=== PATIENT | female | born 1955 | race African-American/Black ===

== ENCOUNTER 2017-12-17 17:01 | Inpatient (IN) ==
[2017-12-17] MEDS ORDERED: Morphine Inj 4 MG/ML Vial IV.PUSH ONE (17:50)
--- NOTE | 2017-12-17 17:53 | ED ---
HPI General Chief complaint: Ldr Rn Problem Stated complaint: medical lab assistant Time Seen by Provider: 12/17/17 17:09 Source: patient, EMS and RN notes reviewed Mode of arrival: EMS Limitations: physical limitation History of Present Illness HPI narrative: The patient is a 62-year-old female who presents to emergency department as a transfer from [facility] for hydrocephalus with possible shunt malfunction. The patient apparently has a history of previous brain tumor with surgery resulting in hydrocephalus and a shunt was placed. The patient apparently lives with her daughter who noted over the last several days the patient has had decreased mental status and decreased appetite. They were seen at [facility] and had a CT the brain that apparently revealed dilated ventricles. The patient was transferred to [facility] after being accepted by neurosurgery. Upon arrival the patient will follow commands, is mostly nonverbal and unable to provide any answers. She will squeeze her right hand and move her right leg to commands, will not move the left side of her body. She has a disconjugate gaze but is able to mouth her name. Related Data Allergies Allergy/AdvReac Type Severity Reaction Status Date / Time heparin Allergy Anaphylaxis Verified 12/17/17 17:31 Sulfa (Sulfonamide Allergy Anaphylaxis Verified 12/17/17 17:31 Antibiotics) Review of Systems ROS: all other systems reviewed are negative [facility] Medical History Medical History CVA (cerebral vascular accident) (Acute) DVT (deep venous thrombosis) (Acute) Diabetes (Acute) H/O: hysterectomy (Acute) Hypothyroid (Acute) Obstructed TERADATA ARCHITECT shunt (Acute) Seizure (Acute) Surgical History Surgical History History of cholecystectomy (Acute) S/P TERADATA ARCHITECT shunt (Acute) Social History Social History Recent Travel in [facility] within the Last 8 Weeks: No Recent Out of Country Travel within the Last 8 Weeks: No Exam Narrative Exam Narrative: GENERAL: Eyes open, mostly nonverbal, follows commands. SKIN: Focused skin assessment warm/dry. HEAD: Atraumatic. Normocephalic. EYES: Left pupil is 2 mm, right pupil is 4 mm, patient has an tropia bilaterally. ENT: No nasal bleeding or discharge. Mucous membranes pink and moist. NECK: Trachea midline. No JVD. CARDIOVASCULAR: Regular rate and rhythm. No murmur appreciated. RESPIRATORY: No accessory muscle use. Clear to auscultation. Breath sounds equal bilaterally. GASTROINTESTINAL: Abdomen soft, obese, superficial abrasions under the large pannus. MUSCULOSKELETAL: Atrophy noted to the left upper extremity with contracture the left hand and atrophy of the left lower extremity with plantar flexion contracture. Patient will move her right upper extremity and right lower extremity. NEUROLOGICAL: Awake and alert. Patient is able to move her right upper extremity and right lower extremity. Patient does not move her left upper extremity or left lower extremity. She is able to follow commands with squeezing right hand and moving the right foot. She is able to mouth her name. Patient's eyes are inverted bilaterally, she will not follow fingers for extraocular movements. PSYCHIATRIC: Unable to assess. Course Initial Documented Vital Signs Pulse Rate 76 12/17/17 17:19 Respiratory Rate 18 12/17/17 17:19 Blood Pressure 168/89 H 12/17/17 17:19 Pulse Oximetry 100 12/17/17 17:19 Last Documented Vital Signs Pulse Rate 74 12/17/17 17:42 Respiratory Rate 16 12/17/17 17:42 Blood Pressure 173/70 H 12/17/17 17:42 Pulse Oximetry 100 12/17/17 17:42 Medical Decision Making MDM Narrative Medical decision making narrative: The patient was accepted by neurosurgery, the neurosurgeon did evaluate the patient in the emergency department and tapped the patient's shunt for CSF studies. The patient will be admitted to the medical service. The patient's labs were reviewed [facility] and the CT results and x-ray results were reviewed. The patient will be admitted to the on-call medical service. I discussed the patient with Dr. Tipton who agrees with admission. The patient did appear to be in mild discomfort, therefore, was administer morphine and Zofran. Labs [facility] revealed white count of 9.0, hemoglobin 12.5, hematocrit 38.9, platelet count 329 PT 27.6, INR 2.5, APTT 40.8 Sodium 145, potassium 5.2, chloride 106, CO2 23, anion gap 21, BUN 24, creatinine 1.16, glucose 102, calcium 9.2, total bili 0.2, AST is 20, ALT 15, alkaline phosphatase 98, total protein 8.1, albumin 4.4 CT of the brain reveals a shunt tube entering the right lateral ventricle. There has been development of hydrocephalus and transependymal flow of CSF since the prior study suggesting shunt failure. No acute hemorrhages evident. Chest x-ray there is no visible active process Medical Screen Exam Complete: Yes Emergency Medical Condition: Yes Differential Diagnosis Differential Diagnosis: Differential diagnosis includes normal pressure hydrocephalus, obstructive hydrocephalus, brain tumor, pseudotumor cerebri, hyponatremia, dehydration, encephalitis, meningitis. Discharge Plan Discharge Disposition Patient Disposition: 30 Still Patient Discharge Condition Condition: Stable Discharge Details Diagnosis: Hydrocephalus Physicians Team ED Provider: Beau Rinaldi Primary Care Provider: UNKNOWN, Attending Provider: Randee Tipton Discharge Interventions Interventions: Vital Signs Last Done: 12/17/17 17:42 Status ED Status: Admitted Patient
[2017-12-17] MEDS ORDERED: Acetaminophen 325 MG Tablet PO PRN (18:20)
[2017-12-17] MEDS ORDERED: Bisacodyl 10 MG Supp RECTAL PRN (18:20)
--- NOTE | 2017-12-17 18:40 | P.CONNS ---
History of Present Illness Service: Neurosurgery Consult date: 12/17/17 Primary Care Provider: UNKNOWN Chief Complaint: r/o shunt malfunction History of Present Illness: History obtained from daughter Maddie @ [phone] 62 yo F with PMH of DVT/PE on coumadin (INR 2.5), CVA, seizures, DM, hypothyroid , s/p right presigmoid craniotomy ("for brain tumor", 7 years ago, [facility]), also s/p right VPS (7 years ago, "tubing replaced 1 year ago) presents to OSH for 2-3 days of decreased appetite and "talking." Daughter denies any complaints of headaches, nausea, vomiting, or neurological changes aside from "seems less alert." Review of Systems All other systems reviewed negative except as stated in [facility]PI [facility] - History History Provided By: Fork Operator / EMT - Medical History Medical History: Medical History (Last Updated 12/17/17 @ 17:30 by Janet Montana) CVA (cerebral vascular accident) DVT (deep venous thrombosis) Diabetes H/O: hysterectomy Hypothyroid Obstructed DIRECTOR OF RELIGIOUS LIFE shunt Seizure - Surgical History Surgical History: Surgical History (Last Updated 12/17/17 @ 17:30 by Janet Montana) History of cholecystectomy S/P DIRECTOR OF RELIGIOUS LIFE shunt - Travel History Recent Travel in the [place] Within the Last 8 Weeks: No Recent Travel Out of the Country Within the Last 8 Weeks: No Medications and Allergies Active Medications: Active Medications Acetaminophen (Tylenol) 650 mg PO Q4H PRN PRN Reason: Temp > 100.4 Al Hydroxide/Mg Hydroxide (Milk Of Magnesia Liq) 30 ml PO Q12H PRN PRN Reason: Mild Constipation Bisacodyl (Dulcolax Supp) 10 mg RECTAL DAILY PRN PRN Reason: SEVERE CONSITIPATION Lactulose (Lactulose Liq) 30 ml PO DAILY PRN PRN Reason: SEVERE CONSITIPATION Ondansetron HCl (Zofran Inj) 4 mg IV.PUSH Q6H PRN PRN Reason: NAUSEA OR VOMITING Senna/Docusate Sodium (Nevaeh-Colace) 1 tab PO BID NICKI Sennosides (Senokot) 17.2 mg PO Q12H PRN PRN Reason: Moderate Constipation Allergies Allergy/AdvReac Type Severity Reaction Status Date / Time heparin Allergy Anaphylaxis Verified 12/17/17 17:31 Sulfa (Sulfonamide Allergy Anaphylaxis Verified 12/17/17 17:31 Antibiotics) Exam Vital signs: Vital Signs 12/17/17 17:19 12/17/17 17:42 Pulse Rate 76 74 Respiratory Rate 18 16 Blood Pressure 168/89 H 173/70 H Pulse Oximetry 100 100 Intake & Output 12/16/17 12/17/17 12/17/17 18:59 06:59 18:59 Weight 115 kg Narrative: E3 dysconjugate gaze with restricted motion (daughter reports baseline oriented to self only Follows simple commands on the right 5/5 strength on the right upper and lower extremities does not follow commands on the left trace movement to stimulation in the left Assessment and Plan - Plan OSH Imaging 12/17: craniectomy defect in the right presigmoid area. Right frontal VPS entering the right lateral ventricle and terminating into the 3rd ventricle. Ventriculomegaly noted. right frontal hypodensity/encephalomalacia 62 yo with PMH of CVA, DVT/PE on coumadin, craniotomy s/p VPS with possible shunt malfunction -VPS taped at bedside: without spontaneous flow till aspirated. opening pressure 12, drained off 15cc, closing pressure 2 cc. -CSF sent for cytology and culture to r/o infection -Discussed with transfer center, will have rough and trueing machine operator obtain previous imaging for comparison -Will obtain shunt series to evaluate for any disconnect -recommend reversal of coumadin for possible surgical intervention -NPO at midnight for possible shunt revision pending results of above
[2017-12-17] MEDS ORDERED: Dextrose 50% in Water 50 ML Vial IV.PUSH PRN (19:05)
[2017-12-17] MEDS ORDERED: hydrALAZINE HCl Inj 20 MG/ML Vial IV.PUSH PRN (19:06)
--- NOTE | 2017-12-17 19:09 | P.HPIM ---
History of Present Illness Primary Care Physician: UNKNOWN Chief Complaint: r/o shunt malfunction History of Present Illness: 62-year-old -[place] female with history of brain tumor status post resection x 2 and shunt placement x 2 for hydrocephalus, prior CVA with left- sided hemiparesis, prior DVT/PE anticoagulated on Coumadin, seizure disorder, and hypothyroidism transferred from [facility] for evaluation of possible shunt malfunction. The patient is a poor historian and the history is primarily obtained by the ED physicians evaluation as well as the patient's daughter who was contacted via phone. Reportedly the patient has had worsening altered mental status for the past several days and decreased appetite. Her daughter states that although she is not completely oriented at baseline she is able to hold a conversation. She states she knows her name, birthday, social security number, etc. but is typically not oriented to time. Today it got to the point where the patient was not even able to communicate with her daughter so she brought her into the ED at [place] since they live in [place]. A CT scan of the brain showed dilated ventricles concerning for possible shunt malfunction. After acceptance by neurosurgery, the patient was transferred to [place]. The patient denies headaches, nausea, vomiting, or new neuro deficits. The daughter states she hasn't had a fever or signs of infection. She hasn't been seen by a neurologist in approximately one year as her daughter has had difficulty finding one that will accept her. The patient's daugther states her PCP has taken her off multiple medications and now she is only taking Lisinopril, Keppra, and Coumadin. She states she had diabetes when she was chronically on steroids for the tumor but since being off she has been off of diabetic medications. - Diagnosis (1) Altered mental status (2) Hydrocephalus Inpatient Certification: I certify that the inpatient services were ordered in accordance with Medicare regulations governing the order. This includes certification that hospital inpatient services are reasonable and necessary and in the case of services not specified as inpatient-only under 42 CFR 419.22(n), that they are appropriately provided as inpatient services in accordance to with the 2-midnight benchmark under 43 CFR 412.3(e) Estimated Total Length of Stay (Days): 3 Plans for Post Hospital Care: Not yet determined Review of Systems All other systems reviewed negative except as stated in HPI [facility] - History History Provided By: Personal Care Service Provider / EMT - Medical History Medical History: Medical History (Last Reviewed 12/17/17 @ 21:01 by Randee Tipton MD) CVA (cerebral vascular accident) DVT (deep venous thrombosis) Diabetes Hypothyroid Obstructed INVESTMENT ACCOUNTING CLERK shunt Seizure - Surgical History Surgical History: Surgical History (Last Updated 12/17/17 @ 21:01 by Randee Tipton MD) H/O brain surgery H/O: hysterectomy History of cholecystectomy S/P INVESTMENT ACCOUNTING CLERK shunt - Family History Family History: Family History (Last Updated 12/17/17 @ 21:02 by Randee Tipton MD) Other Family history non-contributory - Social History I have reviewed the patient's Social History: Yes - Tobacco History Tobacco Use In Past 30 Days: No Smoking Status: Never smoker - Alcohol History How Often Do You Have a Drink Containing Alcohol: Never - Travel History Recent Travel in the [place] Within the Last 8 Weeks: No Recent Travel Out of the Country Within the Last 8 Weeks: No Medications and Allergies Active Medications: Active Medications Acetaminophen (Tylenol) 650 mg PO Q4H PRN PRN Reason: Temp > 100.4 Al Hydroxide/Mg Hydroxide (Milk Of Magnesia Liq) 30 ml PO Q12H PRN PRN Reason: Mild Constipation Bisacodyl (Dulcolax Supp) 10 mg RECTAL DAILY PRN PRN Reason: SEVERE CONSITIPATION Lactulose (Lactulose Liq) 30 ml PO DAILY PRN PRN Reason: SEVERE CONSITIPATION Ondansetron HCl (Zofran Inj) 4 mg IV.PUSH Q6H PRN PRN Reason: NAUSEA OR VOMITING Senna/Docusate Sodium (Nevaeh-Colace) 1 tab PO BID NICKI Sennosides (Senokot) 17.2 mg PO Q12H PRN PRN Reason: Moderate Constipation Allergies Allergy/AdvReac Type Severity Reaction Status Date / Time heparin Allergy Anaphylaxis Verified 12/17/17 17:31 Sulfa (Sulfonamide Allergy Anaphylaxis Verified 12/17/17 17:31 Antibiotics) Home Medications Medication Instructions Recorded Confirmed Type cholecalciferol (vitamin D3) 50,000 unit PO QWEEK 12/17/17 12/17/17 History [Decara] escitalopram oxalate 10 mg PO DAILY 12/17/17 12/17/17 History insulin aspart U-100 5 unit SUB-Q DAILY 12/17/17 12/17/17 History insulin detemir U-100 [Levemir 12 unit SUB-Q HS 12/17/17 12/17/17 History U-100 Insulin] levetiracetam [Keppra] 10 mg/kg PO Q12H 12/17/17 12/17/17 History levothyroxine 50 mcg PO DAILY 12/17/17 12/17/17 History trazodone 50 mg PO HS 12/17/17 12/17/17 History warfarin 5 mg PO DAILY 12/17/17 12/17/17 History Exam Vital signs: Vital Signs 12/17/17 17:19 12/17/17 17:42 Pulse Rate 76 74 Respiratory Rate 18 16 Blood Pressure 168/89 H 173/70 H Pulse Oximetry 100 100 Intake & Output 12/17/17 12/17/17 12/18/17 06:59 18:59 06:59 Weight 115 kg Narrative: GENERAL: Obese -[place] female resting in bed in [facility]. SKIN: Warm and dry. HEENT: Pupils equal and round. Strabismus. MMM. HEART: RRR no m/r/g. LUNGS: CTAB without wheezes or crackles. ABDOMEN: +BS, soft, NT, ND. EXTREMITIES: No LE edema. NEURO: Awake and alert. LLE and LUE flaccid. Results - Labs CBC & Chem 7: 12/17/17 20:28 Caprini VTE Risk Assessment Caprini VTE Risk Assessment: Moderate/High Risk (score >= 2) Caprini Risk Assessment Model: Point Value = 1 Point Value = 2 Point Value = 3 Point Value = 5 Age 41-60 Minor surgery BMI > 25 kg/m2 Swollen legs Varicose veins or History of unexplained or recurrent spontaneous Oral contraceptives or hormone replacement Sepsis (< 1 month) Serious lung disease, including pneumonia (< 1 month) Abnormal pulmonary function Acute myocardial infarction Congestive heart failure (< 1 month) History of inflammatory bowel disease Medical patient at bed rest Age 61-74 Arthroscopic surgery Major open surgery (> 45 min) Laparoscopic surgery (> 45 min) Malignancy Confined to bed (> 72 hours) Immobilizing plaster cast Central venous access Age >= 75 History of VTE Family history of VTE Factor V Leiden Prothrombin [id number] Lupus anticoagulant Anticardiolipin antibodies Elevated serum homocysteine Heparin-induced thrombocytopenia Other congenital or acquired thrombophilia Stroke (< 1 month) Elective arthroplasty Hip, pelvis, or leg fracture Acute spinal cord injury (< 1 month) Prophylaxis Regimen: Total Risk Factor Score Risk Level Prophylaxis Regimen 0-1 Low Early ambulation 2 Moderate Order ONE of the following: *Sequential Compression Device (SCD) *Heparin 5000 units SQ BID 3-4 Higher Order ONE of the following medications: *Heparin 5000 units SQ TID *Enoxaparin/Lovenox 40 mg SQ daily (WT < 150 kg, CrCl > 30 mL/min) *Enoxaparin/Lovenox 30 mg SQ daily (WT < 150 kg, CrCl > 10-29 mL/min) *Enoxaparin/Lovenox 30 mg SQ BID (WT < 150 kg, CrCl > 30 mL/min) AND/OR *Sequential Compression Device (SCD) 5 or more Highest Order ONE of the following medications: *Heparin 5000 units SQ TID (Preferred with Epidurals) *Enoxaparin/Lovenox 40 mg SQ daily (WT < 150 kg, CrCl > 30 mL/min) *Enoxaparin/Lovenox 30 mg SQ daily (WT < 150 kg, CrCl > 10-29 mL/min) *Enoxaparin/Lovenox 30 mg SQ BID (WT < 150 kg, CrCl > 30 mL/min) AND *Sequential Compression Device (SCD) Assessment and Plan - Assessment (1) Altered mental status Code(s): R41.82 - Altered mental status, unspecified Status: Acute (2) Hydrocephalus Code(s): G91.9 - Hydrocephalus, unspecified Status: Acute - Plan 62-year-old -[place] female with history of brain tumor status post resection and INVESTMENT ACCOUNTING CLERK shunt placement, prior CVA, prior DVT/PE anticoagulated on Coumadin, and seizure disorder transferred from [facility] for evaluation of shunt malfunction after the patient presented with AMS. Labs from the outlying facility revealed white count of 9.0, hemoglobin 12.5, hematocrit 38.9, platelet count 329, PT 27.6, INR 2.5, APTT 40.8, Sodium 145, potassium 5.2 , chloride 106, CO2 23, anion gap 21, BUN 24, creatinine 1.16, glucose 102, calcium 9.2, total bili 0.2, AST 20, ALT 15, alkaline phosphatase 98, total protein 8.1, and albumin 4.4. CT of the brain revealed a shunt tube entering the right lateral ventricle with development of hydrocephalus and transependymal flow of CSF since the prior study suggesting shunt failure. 1. Altered mental status - Afebrile, VSS - Outside imaging and labs as above - Neurosurgery consulted s/p VPS tap at the bedside with CSF fluid sent for evaluation (cytology and culture) - Opening pressure 12, 15 cc CSF drained with closing pressure 2 - Check U/A for infection - Electrolytes WNL - Check shunt series - Check TSH - D/W neurosurgery, will give 1 unit FFP to reverse Coumadin 2. Hydrocephalus - INVESTMENT ACCOUNTING CLERK shunt in place - See plans above 3. ?Hypothyroidism - Daughter does not endorse Synthroid on med list - Check TSH 4. H/o recurrent DVT/PE - Anticoagulated on Coumadin with INR 2.5 - Doppler U/S negative for DVT - Holding Coumadin for possible neurosurgical intervention - 1 unit FFP ordered - Check INR tomorrow 5. Hyperkalemia - Potassium 5.2 - Recheck BMP 6. Seizures - Continue Keppra NPO after midnight DVT prophylaxis: INR 2.5, SCDs Code Status: FULL (d/w daughter) Discussed Condition With: Dr. Rinaldi, Dr. Burk, and patient's daughter
--- NOTE | 2017-12-17 19:28 | XR ---
EXAM DATE: 12/17/2017 7:11 PM EDT AGE/SEX: 62 years / Female INDICATIONS: Shunt patency. CLINICAL DATA: This is the patient's initial encounter. Patient reports that signs and symptoms have been present for 1 day and indicates a pain score of Nonresponsive. MEDICAL/SURGICAL HISTORY: . CVA. Diabetes. DVT. Seizures. Hysterectomy. 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 BI LEAD s alex. COMPARISON: No prior exams available for comparison. FINDINGS: Examination includes two-view skull, two-view C-spine, and frontal views of the chest and abdomen. Ventriculostomy shunt tip is projected in the left lower abdomen . The alignment of the tubing wit h the reservoir is maintained without evidence of separation. The shunt tubing has a normal course through the neck and chest without discontinuity or kink. The shunt tubing is coiled in the abdomen without displacement of the bowel about the distal tip. CONCLUSION: The shunt catheter tubing appears intact. Electronically signed by: Dov Polk MD 12/17/2017 7:27 PM EDT
--- NOTE | 2017-12-17 20:44 | US ---
EXAM DATE: 12/17/2017 8:39 PM EDT AGE/SEX: 62 years / Female INDICATIONS: Thrombosis. CLINICAL DATA: This is the patient's initial encounter. Patient reports that signs and symptoms have been present for 1 day and indicates a pain score of 0/10. MEDICAL/SURGICAL HISTORY: . CVA. Diabetic. DVT. Hypothyroid. Obstructed TESTING AND REGULATING CHIEF shunt. Seizure. . Hysterectomy. S/P TESTING AND REGULATING CHIEF shunt. COMPARISON: No prior exams available for comparison. TECHNIQUE: Venous ultrasound of both lower extremities was performed from the inguinal ligament to t he proximal calf. Real-time, color Doppler and spectral tracing, compression and augmentation techni ques were used. FINDINGS: The study was mildly suboptimal due to the patient's body habitus. Right Leg: Normal compression of the deep venous system from the inguinal region to the proximal karin f. No echogenic clot is seen. Normal response of the venous system to augmentation and respiration. Left Leg: Normal compression of the deep venous system from the inguinal region to the proximal calf . No echogenic clot is seen. Normal response of the venous system to augmentation and respiration. Other: None. CONCLUSION: 1. Negative study with no evidence of deep venous thrombosis. Electronically signed by: Dov Polk MD 12/17/2017 8:43 PM EDT
[2017-12-17 20:48] LABS: Lymphocytes, CSF 60 %; Monocytes,CSF 40 %
[2017-12-17 20:49] LABS: Neutrophils,CSF 0 %; RBC on Tube 1 14 /mm3
[2017-12-17] MEDS ORDERED: Insulin NovoLOG Aspart Correctional Sugar Inj SQ SCH (21:00)
[2017-12-17 21:22] LABS: Calcium 8.9 mg/dL (8.5-10.1); Carbon Dioxide 26.3 meq/L (21.0-32.0)
[2017-12-17 21:31] LABS: Thyroid Stimulating Hormone 0.797 uIU/mL (0.358-3.740)
[2017-12-17] MEDS: Senna/Docusate Sodium 8.6/50 MG Tablet PO SCH (21:32)
--- NOTE | 2017-12-17 22:14 | XR ---
EXAM DATE: 12/17/2017 10:09 PM EDT AGE/SEX: 62 years / Female INDICATIONS: Evaluate for shunt valve type. CLINICAL DATA: This is the patient's initial encounter. Patient reports that signs and symptoms have been present for 1 day and indicates a pain score of 0/10. MEDICAL/SURGICAL HISTORY: . CVA. Diabetes. DVT. Seizures. . Hysterectomy. 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 V P shunt. COMPARISON: [facility], SHUNT SERIES, 12/17/2017. . FINDINGS: Multiple attempts were made to position the patient to that the shunt valve could be visualized tange ntially. This could not be performed even with fluoroscopy. The shunt valve is visualized and cannot be read CONCLUSION: Suboptimal visualization. Electronically signed by: Dov Polk MD 12/17/2017 10:13 PM EDT
--- NOTE | 2017-12-17 23:13 | P.EN ---
Received imaging from OSH. Ct head from demonstrates ventriculomegaly ( failure scan) which daughter reports is "around the time of the last revision" which is similar in appearance to 12/17 CT head. Further, CT head from demonstrates normal ventricular size. All three scans also demonstrate a Strata NSC programmable valve with stable setting to 1.5 (roughly 80 mm H20), therefore simple adjustment would not suffice. Xray shunt series does not demonstrate any discontinuity of tubing. Since shunt tap pressure was roughly 120-130, likely valve issue. Currently patient bright, AOxself, and following commands on the right (stable). Since patients exam stable, has been temporized by shunt tap, and is high risk 2/2 elevated coumadin, will plan for shunt exploration/revision in am. -Transfuse FFP with goal normal INR -OR in am for shunt revision
[2017-12-17] MEDS ORDERED: levETIRAcetam 250 MG Tablet PO STA (23:46)
[2017-12-18] MEDS: Levothyroxine 50 MCG Tablet PO SCH (05:47)
[2017-12-18] MEDS ORDERED: Gelatin Size 100 Topical Foam ONE (07:08)
[2017-12-18] MEDS ORDERED: Lidocaine 1%/Epinephrine 1:100,000 Inj 30 ML Vial ONE (07:08)
[2017-12-18] MEDS ORDERED: Thrombin Topical Soln 5,000 UNIT Vial TOPICAL ONE (07:09)
[2017-12-18 07:12] LABS: Baso # (Auto) 0.1 th/mm3 (0.0-0.2); Baso % (Auto) 0.8 % (0.0-2.0); Eos # (Auto) 0.3 th/mm3 (0.0-0.4); Eos % (Auto) 2.7 % (0.0-4.0); Hematocrit 32.7 % (35.0-46.0); Hemoglobin 10.6 gm/dL (11.6-15.3); Lymph # (Auto) 3.2 th/mm3 (1.0-4.8); Lymph % (Auto) 33.6 % (9.0-44.0); Mean Corpuscular HGB Conc 32.3 % (32.0-36.0); Mean Corpuscular Hemoglobin 26.4 pg (27.0-34.0); Mean Corpuscular Volume 81.8 fL (80.0-100.0); Mean Platelet Volume 7.6 fL (7.0-11.0); Mono # (Auto) 0.5 th/mm3 (0.0-0.9); Mono % (Auto) 5.2 % (0.0-8.0); Neut # (Auto) 5.4 th/mm3 (1.8-7.7); Neut % (Auto) 57.7 % (16.0-70.0); Platelet Count 327 th/mm3 (150-450); Red Cell Distribution Width 16.7 % (11.6-17.2); White Blood Count 9.4 th/mm3 (4.0-11.0)
[2017-12-18 07:16] LABS: INR 1.8 Ratio; Prothrombin Time 18.7 sec (9.8-11.6)
[2017-12-18 07:38] LABS: Calcium 8.9 mg/dL (8.5-10.1); Carbon Dioxide 29.9 meq/L (21.0-32.0); Potassium 3.8 meq/L (3.5-5.1)
--- NOTE | 2017-12-18 08:02 | P.PNNS ---
Subjective Interval history: patient without any issues. neuro stable through night per nursing. received 1 unit FFP last night Physical Exam Vital signs: Vital Signs 12/17/17 17:19 12/17/17 17:42 12/17/17 19:10 Temperature Pulse Rate 76 74 78 Respiratory Rate 18 16 16 Blood Pressure 168/89 H 173/70 H 153/97 H Pulse Oximetry 100 100 100 12/17/17 20:00 12/18/17 00:00 12/18/17 00:16 Temperature 97.9 F 97.9 F 98 F Pulse Rate 80 90 85 Respiratory Rate 18 Blood Pressure 166/71 H 152/81 H 141/66 H Pulse Oximetry 100 98 100 12/18/17 00:35 12/18/17 02:10 12/18/17 02:58 Temperature 99.3 F 99.6 F 98.0 F Pulse Rate 84 86 83 Respiratory Rate 18 Blood Pressure 138/89 125/82 131/60 Pulse Oximetry 100 97 100 Intake & Output 12/17/17 12/18/17 12/18/17 18:59 06:59 18:59 Intake Total 351 / 351 Balance 351 / 351 Weight 115 kg Intake: Intake (Blood Product) Amt 351 / 351 Plasma Thawed 5 Day Cp2d Unit 351 / 351 [id number] Other: # Incontinent Voids 2 Narrative: E4 AOx self only Follows commands on the right 5/5 strength in the right upper and lower trace movement in the left upper and lower Assessment and Plan - Plan Imagin: failure scan, significant ventriculomegaly. Strata NSC @1.5 : baseline scan, normal ventricular size with strata NSC @1.5 12/17/17: craniectomy defect in the right presigmoid area. Right frontal VPS entering the right lateral ventricle and terminating into the 3rd ventricle. Ventriculomegaly noted. right frontal hypodensity/encephalomalacia. Strata NSC @1.5 A/P: 62 yo with PMH of CVA, DVT/PE on coumadin, craniotomy s/p VPS with shunt malfunction -neuro stable -CT head with imaging consistent with shunt failure, shunt series with intact tubing -VPS taped at bedside: without spontaneous flow till aspirated. opening pressure 12, drained off 15cc, closing pressure 2 cc -CSF cytology does not appear infected, pending final culture -received 1 unit FFP, repeat INR 1.8. Will repeat another unit of FFP in order to correct -OR this am for shunt revision once INR corrected, continue NPO
--- NOTE | 2017-12-18 09:05 | P.PNIM ---
Subjective Interval history: in no acute distress. looks comfortable. d/w the RN and no acute issues over night. Physical Exam Vital signs: Vital Signs 12/17/17 17:19 12/17/17 17:42 12/17/17 19:10 Temperature Pulse Rate 76 74 78 Respiratory Rate 18 16 16 Blood Pressure 168/89 H 173/70 H 153/97 H Pulse Oximetry 100 100 100 12/17/17 20:00 12/18/17 00:00 12/18/17 00:16 Temperature 97.9 F 97.9 F 98 F Pulse Rate 80 90 85 Respiratory Rate 18 18 18 Blood Pressure 166/71 H 152/81 H 141/66 H Pulse Oximetry 100 98 100 12/18/17 00:35 12/18/17 02:10 12/18/17 02:58 Temperature 99.3 F 99.6 F 98.0 F Pulse Rate 84 86 83 Respiratory Rate 18 18 18 Blood Pressure 138/89 125/82 131/60 Pulse Oximetry 100 97 100 Intake & Output 12/17/17 12/18/17 12/18/17 18:59 06:59 18:59 Intake Total 351 / 351 Balance 351 / 351 Weight 115 kg Intake: Intake (Blood Product) Amt 351 / 351 Plasma Thawed 5 Day Cp2d Unit 351 / 351 [id number] Other: # Incontinent Voids 2 - Constitutional no acute distress - Routine Respiratory Exam Present: CTA bilaterally - Routine Cardiovascular Exam Present: RRR - Routine Abdominal Exam Present: soft - Routine Extremities Exam Comments: no pedal edema. - Routine Neurological Exam awake. Results - Labs CBC & Chem 7: 12/18/17 06:50 12/18/17 06:50 Laboratory Results - last 24 hr 12/17/17 12/17/17 12/17/17 17:45 17:45 17:45 WBC RBC Hgb Hct MCV MCH MCHC RDW Plt Count MPV Neut % (Auto) Lymph % (Auto) Luce % (Auto) Eos % (Auto) Baso % (Auto) Neut # (Auto) Lymph # (Auto) Luce # (Auto) Eos # (Auto) Baso # (Auto) WBC Differential Differential Comment PT INR Sodium Potassium Chloride Carbon Dioxide Anion Gap BUN Creatinine Estimated GFR Random Glucose Calcium TSH CSF Volume (1) 3.0 CSF Supernat Color (1) Clear CSF WBC (1) 6 CSF RBC (1) 14 H CSF Neutrophils % 0 CSF Lymphocytes % 60 CSF Monocytes % 40 CSF Glucose 67 CSF Total Protein 16.1 Blood Type Blood Bank Comment 12/17/17 12/17/17 12/18/17 20:28 20:34 06:50 WBC 9.4 RBC 4.00 Hgb 10.6 L Hct 32.7 L MCV 81.8 MCH 26.4 L MCHC 32.3 RDW 16.7 Plt Count 327 MPV 7.6 Neut % (Auto) 57.7 Lymph % (Auto) 33.6 Luce % (Auto) 5.2 Eos % (Auto) 2.7 Baso % (Auto) 0.8 Neut # (Auto) 5.4 Lymph # (Auto) 3.2 Luce # (Auto) 0.5 Eos # (Auto) 0.3 Baso # (Auto) 0.1 WBC Differential . Differential Comment Auto diff final PT INR Sodium 145 Potassium 4.0 Chloride 111 H Carbon Dioxide 26.3 Anion Gap 8 BUN 23 H Creatinine 1.33 H Estimated GFR 41 L Random Glucose 91 Calcium 8.9 TSH 0.797 CSF Volume (1) CSF Supernat Color (1) CSF WBC (1) CSF RBC (1) CSF Neutrophils % CSF Lymphocytes % CSF Monocytes % CSF Glucose CSF Total Protein Blood Type AB Positive Blood Bank Comment 12/18/17 12/18/17 12/18/17 06:50 06:50 08:02 WBC RBC Hgb Hct MCV MCH MCHC RDW Plt Count MPV Neut % (Auto) Lymph % (Auto) Luce % (Auto) Eos % (Auto) Baso % (Auto) Neut # (Auto) Lymph # (Auto) Luce # (Auto) Eos # (Auto) Baso # (Auto) WBC Differential Differential Comment PT 18.7 H INR 1.8 Sodium 146 H Potassium 3.8 Chloride 111 H Carbon Dioxide 29.9 Anion Gap 5 BUN 26 H Creatinine 1.45 H Estimated GFR 37 L Random Glucose 85 Calcium 8.9 TSH CSF Volume (1) CSF Supernat Color (1) CSF WBC (1) CSF RBC (1) CSF Neutrophils % CSF Lymphocytes % CSF Monocytes % CSF Glucose CSF Total Protein Blood Type Blood Bank Comment Microbiology 12/17/17 17:45 Shunt Fluid Gram Stain - Final 12/17/17 17:45 Cerebral Spinal Fluid - Shunt Fluid Gram Stain - Final - Imaging Impressions Shunt Study 12/17/17 17:45 CONCLUSION: The shunt catheter tubing appears intact. Venous Doppler Study 12/17/17 17:48 CONCLUSION: 1. Negative study with no evidence of deep venous thrombosis. Skull X-Ray 12/17/17 20:28 CONCLUSION: Suboptimal visualization. Assessment and Plan - Assessment (1) Altered mental status Code(s): R41.82 - Altered mental status, unspecified Status: Acute (2) Hydrocephalus Code(s): G91.9 - Hydrocephalus, unspecified Status: Acute - Plan 1. Altered mental status - Afebrile, VSS -- Neurosurgery consulted s/p VPS tap at the bedside with CSF fluid sent for evaluation (cytology and culture) - Opening pressure 12, 15 cc CSF drained with closing pressure 2 - D/W neurosurgery, will give another unit FFP to reverse Coumadin -for OR today for shunt revision 2. Hydrocephalus - TREE INSPECTOR shunt in place - See plans above 3. ?Hypothyroidism - Daughter does not endorse Synthroid on med list - TSH WNL 4. H/o recurrent DVT/PE - Anticoagulated on Coumadin - Doppler U/S negative for DVT - Holding Coumadin for possible neurosurgical intervention - 1 unit FFP ordered 5. Seizures - Continue Keppra DVT prophylaxis: SCD's Discharge Planning: for OR today-per neurosurgery.
[2017-12-18 11:01] LABS: Hemoglobin A1c 6.1 % (4.3-6.0)
[2017-12-18] MEDS: Escitalopram 10 MG Tablet PO SCH (11:40)
[2017-12-18] MEDS: Senna/Docusate Sodium 8.6/50 MG Tablet PO SCH ×2 (11:41→21:01)
[2017-12-18] MEDS: levETIRAcetam 250 MG Tablet PO SCH ×2 (11:49→23:06)
[2017-12-18 11:51] LABS: INR 1.8 Ratio
[2017-12-18 12:49] LABS: INR 1.7 Ratio; Prothrombin Time 17.4 sec (9.8-11.6)
[2017-12-18] MEDS ORDERED: Sodium Chlor 0.9% Inj 250 ML IV.SIG SCH (13:00)
--- NOTE | 2017-12-18 13:01 | P.EN ---
After 2 units of FFP, patients INR 1.7. Will transfuse another unit stat, with repeat INR to be drawn 30 minutes after infusion
[2017-12-18 15:30] LABS: INR 1.6 Ratio; Prothrombin Time 16.2 sec (9.8-11.6)
[2017-12-18] MEDS ORDERED: ceFAZolin 2 GM Premix Inj 2 GM/50 ML PIGGYBACK IV.SIG ONE (16:09)
[2017-12-18 16:36] LABS: Bacteria,Urine Moderate /hpf; Bilirubin,Urine Negative (Negative); Clarity,Urine Hazy (Clear); Color,Urine Yellow (Yellw/Straw); Glucose,Urine (UA) Negative (Negative); Leukocyte Esterase,Urine Trace (Negative); Mucus,Urine Few /lpf (Occasional); Nitrite,Urine Negative (Negative); Specific Gravity,Urine 1.026 (1.002-1.035); Squamous Epithelial Cell,Urine 1 /hpf (0-5)
[2017-12-18] MEDS ORDERED: Neostigmine Inj 5 MG/5 ML Syringe IV.PUSH ONE (16:43)
[2017-12-18] MEDS ORDERED: Lidocaine PF 1% Inj 5 ML Syringe INFILTRATN ONE (16:43)
[2017-12-18] MEDS ORDERED: Phenylephrine/NS 1000 MCG/10ML Syringe IV.PUSH ONE (16:43)
[2017-12-18] MEDS ORDERED: Glycopyrrolate Inj 1 MG/5 ML Syringe IV.PUSH ONE (16:43)
--- NOTE | 2017-12-18 18:26 | P.BOP ---
- Postoperative Diagnosis (1) Hydrocephalus Date of procedure: 12/18/17 Procedure: Exploration of right ventriculoperitoneal shunt. Placement of codman hakim programmable valve (set to 80) Anesthesia: GETA Surgeon: Beto Burk MD Estimated blood loss (mL): 25 IV fluids (mL): 600 Urine output (mL): 400 Pathology: none sent Condition: stable Disposition: floor
[2017-12-18] MEDS ORDERED: *morphine SULFATE 10 MG/ML PERIprocedure ONLY ONE ×2 (18:45→18:59)
[2017-12-18] MEDS ORDERED: fentaNYL Citrate Inj 100 MCG/2 ML Ampul ONE (18:55)
--- NOTE | 2017-12-18 20:01 | CT ---
EXAM DATE: 12/18/2017 7:52 PM EDT AGE/SEX: 62 years / Female INDICATIONS: Post op shunt revision. CLINICAL DATA: This is the patient's initial encounter. Patient reports that signs and symptoms have been present for 1 day and indicates a pain score of 0/10. MEDICAL/SURGICAL HISTORY: Cardiovascular disease. Diabetes mellitus type II. Seizures. Craniotomy . 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 Hysterectomy. 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 . TECHNIQUE: CT of the head without contrast. Using automated exposure control and adjustment of the mA and/or kV according to patient size, radiation dose was kept as low as reasonably achievable to ob tain optimal diagnostic quality images. DICOM format image data is available electronically for revi ew and comparison. FINDINGS: There is motion and streak artifact limiting visualization. There is a shunt catheter in place via a right frontal approach with the tip in the right lateral ventricle. There is a small gas collection i n the anterior horn of the right lateral ventricle. Edema is noted in the white matter of the right f rontal and parietal lobe. Calcifications noted in these cerebral falx anteriorly. The lateral and thi rd ventricles appear prominent. There is an ill-defined masslike structure in the right suprasellar r egion. This measures up to approximately 2.4 cm in diameter. The posterior fossa is is otherwise unre markable. The patient is status post right temporal craniotomy. There is no acute hemorrhage. CONCLUSION: 1. Right-sided shunt catheter in place with the tip in the right lateral ventricle. The lateral and third ventricles are prominent. 2. Ill-defined masslike structure in the right suprasellar region. This area is not well-visualized due to streak and motion artifact. 3. The patient is status post right temporal craniotomy. 4. Edema is noted in the white matter of the right frontal and parietal lobes. There is no acute hem orrhage. . Electronically signed by: Dov Polk MD 12/18/2017 8:00 PM EDT
--- NOTE | 2017-12-18 20:14 | P.OP ---
- Preoperative Diagnosis (1) Hydrocephalus - Postoperative Diagnosis (1) Hydrocephalus Date of procedure: 12/18/17 Procedure: Right ventriculoperitoneal shunt revision Implants: Codman Hakim programmable valve (Set to 80) Anesthesia: GETA Surgeon: Beto Burk MD Operation and Findings: Indication for procedure: 62 yo F s/p craniectomy for tumor resection and VPS many years prior who presented to OS with confusion. CT head demonstrated hydrocephalus in comparison to previous imaging. The valve was tapped and CSF aspirated in order to temporize the patient till her INR was successfully reversed with FFP. The risks, indications, and alternatives were discussed with the patients POA, and the family elected to undergo shunt revision. Details of the procedure: The patient was taken to the major OR and was induced with general anesthesia. A preoperative timeout was performed verifying the correct patient and surgical procedure. Preoperative antibiotics were administered. She was positioned with a bump under the shoulder. All sites were appropriately padded. Hair on the head was shaved. She was sterilely prepped and draped. A pre-incisional timeout was again performed confirming the patient, the operative site, and that preoperative antibiotics were given. A hockey stick incision was created around the previous shunt site. Bovie cautery was used for soft tissue dissection. The distal catheter was removed from the shunt valve and connected to the manometer. The distal catheter was noted to be functioning appropriately. The manometer was then connected to the distal portion of the original Strata NSC Valve (previously known to be set to 1.5 or 80 mmH20). The pressure on the manometer was noted to be roughly 13-14 mmH20. The valve was then removed from the proximal catheter and there was noted to be spontaneous CSF flow under significant pressure from the proximal catheter. The elevated manometer pressure in comparison to the valve setting and significantly elevated pressure noted from the proximal catheter without the valve connected, it was assumed that there was a defective shunt valve in a patient with increased ventricular compliance. A Codman Hakim Valve set to 80 was then attached to both the proximal and distal catheters and affixed with silk ties. A 25g butterly needle was then introduced into the valve reservoir and there was spontaneous flow of CSF. Copious irrigation was performed and hemostasis achieved in the scalp incision. We closed the cranial incision with inverted interrupted 2-0 Vicryl sutures and with skin sydnie. We placed bacitracin and sterile dressings on the incisions. All counts were correct at the end of the procedure. A final debriefing was performed. The patient was extubated without complications.
[2017-12-18] MEDS: Lisinopril 5 MG Tablet PO SCH (20:24)
--- NOTE | 2017-12-18 20:57 | XR ---
EXAM DATE: 12/18/2017 7:38 PM EDT AGE/SEX: 62 years / Female INDICATIONS: Evaluate shunt setting. CLINICAL DATA: This is the patient's subsequent encounter. Patient reports that signs and symptoms h ave been present for 2 days and indicates a pain score of Nonresponsive. MEDICAL/SURGICAL HISTORY: . CVA. Diabetes. DVT. Seizures. . Hysterectomy. 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 . FINDINGS: 5 separate lateral views of the skull and shunt valve were obtained. The cross valve is not well visu alized. The shunt setting appears to be set at approximately 70 to 80 mm of water. CONCLUSION: The shunt setting appears to be set at approximately 7 to 80 mm of water. Electronically signed by: Dov Polk MD 12/18/2017 8:56 PM EDT
[2017-12-18] MEDS: LEVETIRACETAM IV.SIG SCH (23:07)
[2017-12-18] MEDS: SODIUM CHLOR 0.9% IV.SIG SCH (23:07)
[2017-12-19] MEDS: Levothyroxine 50 MCG Tablet PO SCH (06:16)
[2017-12-19 07:36] LABS: INR 1.7 Ratio; Prothrombin Time 17.4 sec (9.8-11.6)
[2017-12-19] MEDS: Senna/Docusate Sodium 8.6/50 MG Tablet PO SCH ×2 (08:51→23:08)
[2017-12-19] MEDS: Lisinopril 5 MG Tablet PO SCH (08:51)
[2017-12-19] MEDS: Escitalopram 10 MG Tablet PO SCH (08:51)
--- NOTE | 2017-12-19 08:56 | P.PNNS ---
Subjective Interval history: patient non verbal, does not respond to questioning Physical Exam Vital signs: Vital Signs 12/18/17 09:45 12/18/17 09:55 12/18/17 12:00 Temperature 98.9 F 97.9 F 97.3 F L Pulse Rate 77 76 73 Respiratory Rate 17 14 Blood Pressure 136/57 L 138/73 124/67 Pulse Oximetry 99 100 12/18/17 13:34 12/18/17 13:48 12/18/17 18:39 Temperature 97.9 F 97.3 F L Pulse Rate 81 114 H Respiratory Rate 16 12 Blood Pressure 138/63 140/64 Pulse Oximetry 98 100 96 12/18/17 18:45 12/18/17 19:00 12/18/17 19:15 Temperature Pulse Rate 109 H 109 H 94 H Respiratory Rate 10 L 10 L 8 L Blood Pressure 135/60 125/59 L 127/60 Pulse Oximetry 100 100 100 12/18/17 19:30 12/18/17 19:36 12/18/17 20:00 Temperature 97.6 F 97.9 F Pulse Rate 91 H 92 H Respiratory Rate 10 L 9 L 16 Blood Pressure 123/59 L 128/77 Pulse Oximetry 100 100 12/19/17 00:00 12/19/17 04:00 Temperature 97.7 F 97.9 F Pulse Rate 84 95 H Respiratory Rate 18 18 Blood Pressure 136/74 127/60 Pulse Oximetry 100 100 Intake & Output 12/18/17 12/19/17 12/19/17 18:59 06:59 18:59 Intake Total 550 / 550 107.5 / 107.5 Output Total 175 / 175 Balance 375 / 375 107.5 / 107.5 Weight 105 kg Intake: IV 50 / 50 107.5 / 107.5 Ancef 2 GM Premix Inj 2 gm In 50 / 50 50 ml @ 0 mls/hr IV.SIG .STK- [facility] Rx#:[id number] Keppra Inj 750 MG In NS Inj 100 107.5 / 107.5 ML @ 400 mls/hr IV.SIG Q12H [facility] Rx#:[id number] Anesthesia Amount 500 / 500 Intake (Blood Product) Amt 0 / 0 Plasma Thawed 5d Cp2d Pool 0 / 0 Unit [id number] Output: Estimated Blood Loss 25 / 25 Urine Amount (Catheter) 150 / 150 Indwelling Urethral Catheter 150 / 150 Other: # Voids 2 Narrative: E4 non verbal does not follow commands resists examiner with good strength trace movement in the left upper and lower - Urinary Catheter Management Indwelling Urethral Catheter Cath placed during this visit: yes, but has since been removed by the nurse Reason for continuing: Hourly intake/output Insertion date: 12/18/17 Insertion time: 16:55 Removal time: 18:34 Assessment and Plan - Plan Imagin: failure scan, significant ventriculomegaly. Strata NSC @1.5 : baseline scan, normal ventricular size with strata NSC @1.5 12/17/17: craniectomy defect in the right presigmoid area. Right frontal VPS entering the right lateral ventricle and terminating into the 3rd ventricle. Ventriculomegaly noted. right frontal hypodensity/encephalomalacia. Strata NSC @1.5 12/18/17: right frontal VPS in ventricle with decreased ventricular size A/P: 62 yo with PMH of CVA, DVT/PE on coumadin, craniotomy s/p VPS with shunt malfunction, POD 1 shunt revision -post op CT head with decrease in ventricular size, therefore not likely cause of patients fluctuating neuro exam -repeat Skull Xray demonstrates appropriate valve setting (80) -CSF cytology does not appear infected, pending final culture -Recommend MRI brain with and without contrast to evaluate previous tumor resection (family reports without any follow up imaging) -normalize: activity as tolerated -Estevan for 2 weeks. ok to shower 48 hours post op
[2017-12-19] MEDS: SODIUM CHLOR 0.9% IV.SIG SCH ×2 (11:29→22:10)
[2017-12-19] MEDS: LEVETIRACETAM IV.SIG SCH ×2 (11:29→22:10)
--- NOTE | 2017-12-19 11:45 | P.PNIM ---
Subjective Interval history: in no acute distress. awake but not responsive. no fever. Physical Exam Vital signs: Vital Signs 12/18/17 12:00 12/18/17 13:34 12/18/17 13:48 Temperature 97.3 F L 97.9 F Pulse Rate 73 81 Respiratory Rate 14 16 Blood Pressure 124/67 138/63 Pulse Oximetry 100 98 100 12/18/17 18:39 12/18/17 18:45 12/18/17 19:00 Temperature 97.3 F L Pulse Rate 114 H 109 H 109 H Respiratory Rate 12 10 L 10 L Blood Pressure 140/64 135/60 125/59 L Pulse Oximetry 96 100 100 12/18/17 19:15 12/18/17 19:30 12/18/17 19:36 Temperature 97.6 F Pulse Rate 94 H 91 H Respiratory Rate 8 L 10 L 9 L Blood Pressure 127/60 123/59 L Pulse Oximetry 100 100 12/18/17 20:00 12/19/17 00:00 12/19/17 04:00 Temperature 97.9 F 97.7 F 97.9 F Pulse Rate 92 H 84 95 H Respiratory Rate 16 18 18 Blood Pressure 128/77 136/74 127/60 Pulse Oximetry 100 100 100 12/19/17 08:00 12/19/17 11:36 Temperature 99.2 F Pulse Rate 114 H Respiratory Rate 20 Blood Pressure 107/57 L Pulse Oximetry 100 99 Intake & Output 12/18/17 12/19/17 12/19/17 18:59 06:59 18:59 Intake Total 550 / 550 107.5 / 107.5 Output Total 175 / 175 Balance 375 / 375 107.5 / 107.5 Weight 105 kg Intake: IV 50 / 50 107.5 / 107.5 Ancef 2 GM Premix Inj 2 gm In 50 / 50 50 ml @ 0 mls/hr IV.SIG .STK- [facility] Rx#:[id number] Keppra Inj 750 MG In NS Inj 100 107.5 / 107.5 ML @ 400 mls/hr IV.SIG Q12H [facility] Rx#:[id number] Anesthesia Amount 500 / 500 Intake (Blood Product) Amt 0 / 0 Plasma Thawed 5d Cp2d Pool 0 / 0 Unit [id number] Output: Estimated Blood Loss 25 / 25 Urine Amount (Catheter) 150 / 150 Indwelling Urethral Catheter 150 / 150 Other: # Voids 2 - Constitutional no acute distress - Routine Respiratory Exam Present: CTA bilaterally - Routine Cardiovascular Exam Present: RRR - Routine Abdominal Exam Present: soft - Routine Extremities Exam Comments: no pedal edema. - Routine Neurological Exam awake but not responsive. - Urinary Catheter Management Indwelling Urethral Catheter Cath placed during this visit: yes, but has since been removed by the nurse Reason for continuing: Hourly intake/output Insertion date: 12/18/17 Insertion time: 16:55 Removal time: 18:34 Results - Labs CBC & Chem 7: 12/18/17 06:50 12/18/17 06:50 Laboratory Results - last 24 hr 12/18/17 12/18/17 12/18/17 11:06 12:14 13:01 PT 18.0 H 17.4 H INR 1.8 1.7 POC Glucose Urine Color Urine Clarity Urine pH Ur Specific [place] Urine Protein Urine Glucose (UA) Urine Ketones Urine Occult Blood Urine Nitrate Urine Bilirubin Urine Urobilinogen Ur Leukocyte Esterase Urine RBC Urine WBC Ur Squamous Epith Cells Urine Bacteria Urine Mucus Ur Microscopic Review Blood Bank Comment 12/18/17 12/18/17 12/18/17 15:00 15:05 16:18 PT 16.2 H INR 1.6 POC Glucose 83 Urine Color Yellow Urine Clarity Hazy H Urine pH 5.0 Ur Specific [place] 1.026 Urine Protein 30 H Urine Glucose (UA) Negative Urine Ketones Trace H Urine Occult Blood Negative Urine Nitrate Negative Urine Bilirubin Negative Urine Urobilinogen 2.0 H Ur Leukocyte Esterase Trace H Urine RBC 3 Urine WBC 8 H Ur Squamous Epith Cells 1 Urine Bacteria Moderate H Urine Mucus Few H Ur Microscopic Review Not Reportable Blood Bank Comment 12/19/17 05:50 PT 17.4 H INR 1.7 POC Glucose Urine Color Urine Clarity Urine pH Ur Specific [place] Urine Protein Urine Glucose (UA) Urine Ketones Urine Occult Blood Urine Nitrate Urine Bilirubin Urine Urobilinogen Ur Leukocyte Esterase Urine RBC Urine WBC Ur Squamous Epith Cells Urine Bacteria Urine Mucus Ur Microscopic Review Blood Bank Comment Microbiology 12/17/17 17:45 Shunt Fluid Gram Stain - Final 12/17/17 17:45 Shunt Fluid CSF Culture - Preliminary No growth in 48 hours - Imaging Impressions Head CT 12/18/17 18:21 CONCLUSION: 1. Right-sided shunt catheter in place with the tip in the right lateral ventricle. The lateral and third ventricles are prominent. 2. Ill-defined masslike structure in the right suprasellar region. This area is not well-visualized due to streak and motion artifact. 3. The patient is status post right temporal craniotomy. 4. Edema is noted in the white matter of the right frontal and parietal lobes. There is no acute hemorrhage. . Skull X-Ray 12/18/17 18:22 CONCLUSION: The shunt setting appears to be set at approximately 7 to 80 mm of water. Assessment and Plan - Assessment (1) Altered mental status Code(s): R41.82 - Altered mental status, unspecified Status: Acute (2) Hydrocephalus Code(s): G91.9 - Hydrocephalus, unspecified Status: Acute - Plan 1. Altered mental status/ Hydrocephalus - Afebrile, VSS -- Neurosurgery consulted s/p VPS tap at the bedside with CSF fluid sent for evaluation (cytology and culture) -CSF culture negative so far. - s/p shunt revision 12/18/17 -MRI brain today. 3. Hypothyroidism - on Synthroid - TSH WNL 4. H/o recurrent DVT/PE - Anticoagulated on Coumadin - Doppler U/S negative for DVT - will resume Coumadin when ok with neurosurgery. 5. Seizures - Continue Keppra DVT prophylaxis: SCD's consult PT. Discharge Planning: not ready for discharge. for MRI brain today.
[2017-12-19] MEDS ORDERED: Gadobutrol PF 2 MMOL/2 ML Vial (for RAD) IV.SIG ONE (12:34)
--- NOTE | 2017-12-19 13:58 | P.EN ---
Shunt setting verified, roughly 80 mmH20
--- NOTE | 2017-12-19 14:45 | MR ---
EXAM DATE: 12/19/2017 1:20 PM EDT AGE/SEX: 62 years / Female INDICATIONS: Altered mental status. CLINICAL DATA: This is the patient's subsequent encounter. Patient reports that signs and symptoms h ave been present for 3 days and indicates a pain score of Nonresponsive. MEDICAL/SURGICAL HISTORY: Diabetes mellitus type II. Seizures. CVA Hysterectomy. Cholecystec fredrcik. brain surgery, cod man hakim programmable shunt [place]: [facility] [place]/18/2017. . TECHNIQUE: Multiplanar, multisequence examination of the brain was performed without and with 12 ml G adavist (gadobutrol) contrast as a single exam dose. FINDINGS: The sagittal and axial images are degraded by motion. There is a 2.5 cm x 1.6 cm mass arising adjacent to the right cerebellar peduncle/ brachium pontis ex tending cephalad to involve the cavernous sinus with circumferential involvement of the right carotid . The mass extends cephalad along the third ventricle with minimal compression of the third ventricle . The mass shows intense contrast enhancement. There is minimal epidural extension suggesting this is a meningioma. There is intense enhancement and perineural/vascular spread would suggest this is more aggressive than typical of meningioma.. The mass does cross midline and displaces the basilar artery. The mass does not appear to invade bone. The mass is in intimate association with the infundibulum of the sella with some extension into the s yury. The mass does extend as high as orbital apex. There is mild ventricular prominence in spite of shunt entering from the right. There is some edema a long the shunt course. Minimal intraventricular air is present. Left hemisphere is unremarkable. No other lesions are identified. . CONCLUSION: 1. Mass as described above arising probably from the dural involving the right cavernous sinus, and displacing brainstem with involvement of the basilar artery.. 2. Most likely diagnosis is meningioma probably angiofillic given the degree of enhancement. Lesion such as chordoma or chondrosarcoma are thought to be less likely Electronically signed by: Chon Elias MD 12/19/2017 2:43 PM EDT
--- NOTE | 2017-12-19 15:04 | XR ---
EXAM DATE: 12/19/2017 2:54 PM EDT AGE/SEX: 62 years / Female INDICATIONS: Fever. CLINICAL DATA: This is the patient's initial encounter. Patient reports that signs and symptoms have been present for 1 day and indicates a pain score of 0/10. MEDICAL/SURGICAL HISTORY: . CVA. Diabetes. DVT. Seizures. . Hysterectomy. 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 COMPARISON: [facility] – [place], SHUNT SERIES, 12/17/2017. . FINDINGS: The lungs are under aerated minimal bibasilar parental changes. Cardiac size is appropriate for the d egree of underaeration no pneumothorax. CONCLUSION: Under aerated with minimal bibasilar parenchymal changes. Electronically signed by: Chon Elias MD 12/19/2017 3:03 PM EDT
--- NOTE | 2017-12-19 15:40 | XR ---
EXAM DATE: 12/19/2017 1:43 PM EDT AGE/SEX: 62 years / Female INDICATIONS: Post MRI shunt valve setting. CLINICAL DATA: This is the patient's subsequent encounter. Patient reports that signs and symptoms h ave been present for 3 days and indicates a pain score of 0/10. MEDICAL/SURGICAL HISTORY: . CVA. Diabetes. DVT. Seizures. . Hysterectomy. 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 . FINDINGS: 2 views of the skull are provided. The exam demonstrates a ventriculoperitoneal shunt in place. The shunt appears to be in a pressure se tting of 70. The visualized portion of the skull is grossly intact. CONCLUSION: Ventriculoperitoneal shunt as above. Electronically signed by: Matt Elias MD 12/19/2017 3:38 PM EDT
--- NOTE | 2017-12-19 15:40 | ECG ---
Date Performed: 12/18/2017 Time Performed: 16:24:01 PTAGE: 62 years EKG: Sinus rhythm MODERATE T-WAVE ABNORMALITY, CONSIDER ANTEROLATERAL ISCHEMIA ABNORMAL ECG NO PREVIOUS TRACING DOCTOR: Angel Casarez Interpretating Date/Time 12/19/2017 15:40:01
[2017-12-19 18:55] LABS: Bacteria,Urine Occasional /hpf; Bilirubin,Urine Negative (Negative); Clarity,Urine Hazy (Clear); Color,Urine Yellow (Yellw/Straw); Glucose,Urine (UA) Negative (Negative); Hyaline Casts,Urine 1 /lpf (0-3); Leukocyte Esterase,Urine Trace (Negative); Mucus,Urine Few /lpf (Occasional); Nitrite,Urine Negative (Negative); Specific Gravity,Urine 1.027 (1.002-1.035); Squamous Epithelial Cell,Urine 1 /hpf (0-5)
[2017-12-19] MEDS ORDERED: Acetaminophen 650 MG Supp RECTAL ONE (22:30)
[2017-12-20] MEDS: Sod Chloride 0.9% Inj 1,000 ML IV.CONT SCH ×3 (02:46→08:00)
[2017-12-20] MEDS: Levothyroxine 50 MCG Tablet PO SCH (06:46)
[2017-12-20] MEDS ORDERED: Dextrose 50% in Water Syringe 50 ML ONE (08:13)
[2017-12-20] MEDS: Escitalopram 10 MG Tablet PO SCH (08:44)
[2017-12-20] MEDS: Lisinopril 5 MG Tablet PO SCH (08:44)
[2017-12-20] MEDS: Senna/Docusate Sodium 8.6/50 MG Tablet PO SCH ×2 (08:44→22:13)
--- NOTE | 2017-12-20 08:48 | P.PNNS ---
Subjective Interval history: No events Blood sugars ~59 overnight, history of diabetes but not on meds Physical Exam Vital signs: Vital Signs 12/19/17 11:36 12/19/17 12:00 12/19/17 16:00 Temperature 101.4 F H 98.9 F Pulse Rate 114 H 97 H Respiratory Rate 20 20 Blood Pressure 119/58 L 107/50 L Pulse Oximetry 99 99 100 12/19/17 20:00 12/20/17 00:00 12/20/17 04:00 Temperature 100.5 F H 100.8 F H 98.9 F Pulse Rate 99 H 87 77 Respiratory Rate 18 12 12 Blood Pressure 153/71 H 197/75 H 156/68 H Pulse Oximetry 94 L 100 100 Intake & Output 12/19/17 12/20/17 12/20/17 18:59 06:59 18:59 Intake Total 107.5 / 107.5 107.5 / 107.5 Output Total Balance 107.5 / 107.5 106.5 / 106.5 Weight 107.139 kg Intake: IV 107.5 / 107.5 107.5 / 107.5 Keppra Inj 750 MG In NS Inj 100 107.5 / 107.5 107.5 / 107.5 ML @ 400 mls/hr IV.SIG Q12H [facility] Rx#:[id number] Output: Urine Narrative: E4 verbal minimally (says "Ouch" and "Stop" when passively moving, Protests when I ask her to move her legs does not follow command resists examiner with good strength right arm and leg (purposeful - swats me away and leg flexes in bed). trace movement in the left upper and lower - Urinary Catheter Management Indwelling Urethral Catheter Cath placed during this visit: yes, but has since been removed by the nurse Reason for continuing: Hourly intake/output Insertion date: 12/18/17 Insertion time: 16:55 Removal time: 18:34 Assessment and Plan - Plan Imagin: failure scan, significant ventriculomegaly. Strata NSC @1.5 : baseline scan, normal ventricular size with strata NSC @1.5 12/17/17: craniectomy defect in the right presigmoid area. Right frontal VPS entering the right lateral ventricle and terminating into the 3rd ventricle. Ventriculomegaly noted. right frontal hypodensity/encephalomalacia. Strata NSC @1.5 12/18/17: right frontal VPS in ventricle with decreased ventricular size A/P: 62 yo with PMH of CVA, DVT/PE on coumadin, craniotomy s/p VPS with shunt malfunction, POD 2 shunt revision (12/18) -post op CT head with decrease in ventricular size, therefore not likely cause of patients fluctuating neuro exam -repeat Skull Xray demonstrates appropriate valve setting (80) and this was confirmed by Dr. Burk yesterday after MRI Brain -CSF cytology does not appear infected, pending final culture -MRI brain with and without contrast (12/19/17) shows tumor in resection cavity ( family reports without any follow up imaging) -- will try to coordinate with family this morning -- patient has history of resection at [facility] ~years ago -- if they wish to proceed with treatment here, consider repeat imaging in 3 months with MRI Brain -- baseline patient is blind and has multiple neuropthalmologic findings, but does not give a good exam at this time. -normalize: activity as tolerated PT/OT -- will need rehab -Speech Therapy to evaluate diet today -[place] for 2 weeks. ok to shower 48 hours post op
[2017-12-20 09:05] LABS: Carbon Dioxide 27.1 meq/L (21.0-32.0); Potassium 3.8 meq/L (3.5-5.1)
[2017-12-20] MEDS: SODIUM CHLOR 0.9% IV.SIG SCH ×2 (10:05→22:07)
[2017-12-20] MEDS: LEVETIRACETAM IV.SIG SCH ×2 (10:05→22:07)
[2017-12-20 14:02] LABS: Baso # (Auto) 0.1 th/mm3 (0.0-0.2); Baso % (Auto) 0.9 % (0.0-2.0); Eos # (Auto) 0.5 th/mm3 (0.0-0.4); Eos % (Auto) 6.1 % (0.0-4.0); Hematocrit 30.3 % (35.0-46.0); Hemoglobin 9.5 gm/dL (11.6-15.3); Lymph # (Auto) 1.9 th/mm3 (1.0-4.8); Lymph % (Auto) 22.8 % (9.0-44.0); Mean Corpuscular HGB Conc 31.2 % (32.0-36.0); Mean Corpuscular Hemoglobin 26.3 pg (27.0-34.0); Mean Corpuscular Volume 84.3 fL (80.0-100.0); Mean Platelet Volume 7.6 fL (7.0-11.0); Mono # (Auto) 0.5 th/mm3 (0.0-0.9); Mono % (Auto) 6.4 % (0.0-8.0); Neut # (Auto) 5.3 th/mm3 (1.8-7.7); Neut % (Auto) 63.8 % (16.0-70.0); Platelet Count 270 th/mm3 (150-450); Red Blood Count 3.59 mil/mm3 (4.00-5.30); Red Cell Distribution Width 16.3 % (11.6-17.2); White Blood Count 8.2 th/mm3 (4.0-11.0)
[2017-12-20] MEDS: KCL 10 mEq/D5W/NaCl 0.45% Inj 1,000 ML IV.CONT SCH ×2 (15:06→22:13)
--- NOTE | 2017-12-20 17:20 | P.PN ---
Subjective Interval history: Late entry, patient seen earlier the day Follow-up of patient with altered mental status. Patient status post VPS tap at the bedside performed by neurosurgery. Patient status post shunt revision 12/18/17. Patient seen and examined. Patient extremely lethargic. Discussed with family who is at the bedside states patient was more alert earlier today. Patient with a low blood sugar earlier today, started on D5. Blood sugars improved. Discussed with nursing staff, no acute events noted overnight. Physical Exam Vital signs: Vital Signs 12/19/17 20:00 12/20/17 00:00 12/20/17 04:00 Temperature 100.5 F H 100.8 F H 98.9 F Pulse Rate 99 H 87 77 Respiratory Rate 18 12 12 Blood Pressure 153/71 H 197/75 H 156/68 H Pulse Oximetry 94 L 100 100 12/20/17 08:00 12/20/17 11:10 12/20/17 12:00 Temperature 98.5 F 99 F Pulse Rate 66 73 Respiratory Rate 20 20 Blood Pressure 142/66 H 105/84 Pulse Oximetry 100 97 99 12/20/17 16:00 Temperature 98.6 F Pulse Rate 70 Respiratory Rate 20 Blood Pressure 110/70 Pulse Oximetry 99 Intake & Output 12/19/17 12/20/17 12/20/17 18:59 06:59 18:59 Intake Total 107.5 / 107.5 107.5 / 107.5 157.5 / 157.5 Output Total Balance 107.5 / 107.5 106.5 / 106.5 157.5 / 157.5 Weight 107.139 kg Intake: IV 107.5 / 107.5 107.5 / 107.5 157.5 / 157.5 D50W Syringe 50 ML @ 0 mls/hr . 50 / 50 ROUTE .[facility] Rx#:[id number] Keppra Inj 750 MG In NS Inj 100 107.5 / 107.5 107.5 / 107.5 107.5 / 107.5 ML @ 400 mls/hr IV.SIG Q12H [facility] Rx#:[id number] Output: Urine Narrative: GENERAL: WDWN obese -Citizen Of [place] female patient, in no acute distress. Lethargic. Family is at the bedside. SKIN: Warm and dry. HEAD: Normocephalic. s/p shunt revision, sydnie intact, appears to be healing well. EYES: Patient is blind. No scleral icterus. No injection or drainage. ENT: No nasal bleeding or discharge. Mucous membranes pink and moist. NECK: Trachea midline. CARDIOVASCULAR: Regular rate and rhythm. No M/R/G. RESPIRATORY: No accessory muscle use. Poor effort. Clear to auscultation anteriorly. Breath sounds equal bilaterally. GASTROINTESTINAL: Abdomen soft, non-tender, nondistended. MUSCULOSKELETAL: Extremities without clubbing, cyanosis, or edema. No obvious deformities. NEUROLOGICAL: Lethargic. Does not follow commands. PSYCHIATRIC: Unable to assess at this time. - Urinary Catheter Management Indwelling Urethral Catheter Cath placed during this visit: yes, but has since been removed by the nurse Reason for continuing: Hourly intake/output Insertion date: 12/18/17 Insertion time: 16:55 Removal time: 18:34 Results - Labs CBC & Chem 7: 12/20/17 13:20 12/20/17 07:14 Laboratory Results - last 24 hr 12/19/17 12/19/17 12/20/17 17:20 22:28 02:15 WBC RBC Hgb Hct MCV MCH MCHC RDW Plt Count MPV Neut % (Auto) Lymph % (Auto) [place] % (Auto) Eos % (Auto) Baso % (Auto) Neut # (Auto) Lymph # (Auto) [place] # (Auto) Eos # (Auto) Baso # (Auto) WBC Differential Differential Comment Sodium Potassium Chloride Carbon Dioxide Anion Gap BUN Creatinine Estimated GFR POC Glucose 83 87 Random Glucose Calcium Urine Color Yellow Urine Clarity Hazy H Urine pH 5.0 Ur Specific [place] 1.027 Urine Protein 30 H Urine Glucose (UA) Negative Urine Ketones Trace H Urine Occult Blood Negative Urine Nitrate Negative Urine Bilirubin Negative Urine Urobilinogen 2.0 H Ur Leukocyte Esterase Trace H Urine RBC Less than 1 Urine WBC 3 Ur Squamous Epith Cells 1 Urine Bacteria Occasional H Hyaline Casts 1 Urine Mucus Few H Micro UA Comment Culture not ind Ur Microscopic Review Not Reportable Urine Culture Comments Culture not ind 12/20/17 12/20/17 12/20/17 07:14 07:44 08:44 WBC RBC Hgb Hct MCV MCH MCHC RDW Plt Count MPV Neut % (Auto) Lymph % (Auto) [place] % (Auto) Eos % (Auto) Baso % (Auto) Neut # (Auto) Lymph # (Auto) [place] # (Auto) Eos # (Auto) Baso # (Auto) WBC Differential Differential Comment Sodium 149 H Potassium 3.8 Chloride 115 H Carbon Dioxide 27.1 Anion Gap 7 BUN 17 Creatinine 1.22 H Estimated GFR 45 L POC Glucose 59 L 140 H Random Glucose 70 L Calcium 8.0 L Urine Color Urine Clarity Urine pH Ur Specific [place] Urine Protein Urine Glucose (UA) Urine Ketones Urine Occult Blood Urine Nitrate Urine Bilirubin Urine Urobilinogen Ur Leukocyte Esterase Urine RBC Urine WBC Ur Squamous Epith Cells Urine Bacteria Hyaline Casts Urine Mucus Micro UA Comment Ur Microscopic Review Urine Culture Comments 12/20/17 12/20/17 13:20 13:45 WBC 8.2 RBC 3.59 L Hgb 9.5 L Hct 30.3 L MCV 84.3 MCH 26.3 L MCHC 31.2 L RDW 16.3 Plt Count 270 MPV 7.6 Neut % (Auto) 63.8 Lymph % (Auto) 22.8 [place] % (Auto) 6.4 Eos % (Auto) 6.1 H Baso % (Auto) 0.9 Neut # (Auto) 5.3 Lymph # (Auto) 1.9 [place] # (Auto) 0.5 Eos # (Auto) 0.5 H Baso # (Auto) 0.1 WBC Differential . Differential Comment Auto diff final Sodium Potassium Chloride Carbon Dioxide Anion Gap BUN Creatinine Estimated GFR POC Glucose 72 Random Glucose Calcium Urine Color Urine Clarity Urine pH Ur Specific [place] Urine Protein Urine Glucose (UA) Urine Ketones Urine Occult Blood Urine Nitrate Urine Bilirubin Urine Urobilinogen Ur Leukocyte Esterase Urine RBC Urine WBC Ur Squamous Epith Cells Urine Bacteria Hyaline Casts Urine Mucus Micro UA Comment Ur Microscopic Review Urine Culture Comments Microbiology 12/19/17 18:00 Blood - Peripheral Aerobic Blood Culture - Preliminary No growth in 1 day 12/19/17 18:00 Blood - Peripheral Anaerobic Blood Culture - Preliminary No growth in 1 day 12/19/17 17:51 Blood - Peripheral Aerobic Blood Culture - Preliminary No growth in 1 day 12/19/17 17:51 Blood - Peripheral Anaerobic Blood Culture - Preliminary No growth in 1 day 12/17/17 17:45 Shunt Fluid Gram Stain - Final 12/17/17 17:45 Shunt Fluid CSF Culture - Final No growth in 72 hours (aerobically and anaerobically ) Assessment and Plan - Assessment (1) Altered mental status Code(s): R41.82 - Altered mental status, unspecified Status: Acute (2) Hydrocephalus Code(s): G91.9 - Hydrocephalus, unspecified Status: Acute - Plan 62-year-old -Citizen Of [place] female with history of brain tumor status post resection and 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 Labs from the outlying facility revealed white count of 9.0, hemoglobin 12.5, hematocrit 38.9, platelet count 329, PT 27.6, INR 2.5, APTT 40.8, Sodium 145, potassium 5.2 , chloride 106, CO2 23, anion gap 21, BUN 24, creatinine 1.16, glucose 102, calcium 9.2, total bili 0.2, AST 20, ALT 15, alkaline phosphatase 98, total protein 8.1, and albumin 4.4. CT of the brain revealed a shunt tube entering the right lateral ventricle with development of hydrocephalus and transependymal flow of CSF since the prior study suggesting shunt failure. Altered mental status Hx of hydrocephalus s/p CALL CENTER SUPPORT REPRESENTATIVE shunt - Neurosurgery consulted s/p VPS tap at the bedside with CSF fluid sent for evaluation (cytology and culture). CSF fluid does not appear infected. - s/p shunt revision 12/18/17, [place] x 2 weeks. - MRI brain shows tumor in resection cavity. Consult Oncology, appreciate assistance. Per NS, patient will need to have re-imaging in 3 mos. - lethargic on exam. Obtain EEG. Obtain ammonia level. Obtain ABG. Fever Tmax 100.8, currently afebrile BCX NG x 1 day UA no culture indicated WBC WNL - Obtain CXR - follow blood cx until finalized - monitor temp trend Hypoglycemia BS 59 - Started on D5, continue - continue accucheks - hypoglycemic protocol Diabetes A1c 6.1 - will continue to hold long acting insulin - continue accucheks as above Hypernatremia - continue on D5 - repeat BMP in am RAQUEL on suspected CKD, suspect secondary to poor oral intake - Cr trending down - avoid nephrotoxic agents - repeat BMP in a.m. Hypothyroidism - TSH WNL - Continue on Synthroid H/o recurrent DVT/PE - Anticoagulated on Coumadin with INR 2.5 - Doppler U/S negative for DVT - Coumadin on hold. Will resume Coumadin when ok with NS Seizures - Continue Keppra Code Status: FULL Discussed Condition With: family at bedside, Dr. Bacon Discharge Planning: Not ready for discharge. D/C pending Oncology and NS clearance and clinical improvement.
--- NOTE | 2017-12-20 17:43 | XR ---
EXAM DATE: 12/20/2017 5:39 PM EDT AGE/SEX: 62 years / Female INDICATIONS: Cough and shortness of breath. CLINICAL DATA: This is the patient's initial encounter. Patient reports that signs and symptoms have been present for 4 - 6 days and indicates a pain score of 0/10. MEDICAL/SURGICAL HISTORY: Asthma. Chronic obstructive pulmonary disease. None. COMPARISON: [facility] – [place], CHEST 1V SINGLE AP, 12/19/2017. . FINDINGS: The lungs are better aerated with minimal parenchymal changes left base. There is no effusion or pneu mothorax. The heart and pulmonary vascularity are normal. The portion of the bony skeleton visualized is unremarkable. CONCLUSION: Better aeration Minimal parenchymal changes persisting left base. Electronically signed by: Chon Elias MD 12/20/2017 5:42 PM EDT
--- NOTE | 2017-12-20 18:31 | XR ---
EXAM DATE: 12/20/2017 6:20 PM EDT AGE/SEX: 62 years / Female INDICATIONS: Infiltrate. CLINICAL DATA: This is the patient's subsequent encounter. Patient reports that signs and symptoms h ave been present for 2 days and indicates a pain score of 0/10. MEDICAL/SURGICAL HISTORY: . CVA. Diabetes. DVT. Seizures. . Hysterectomy. 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 COMPARISON: [facility] – [place], CHEST 1V SINGLE AP, 12/19/2017. . FINDINGS: A single AP view of the chest demonstrates the lungs to be symmetrically aerated without evidence of mass, infiltrate or effusion. The cardiomediastinal contours are unremarkable. Osseous structures a re intact. CONCLUSION: Within normal limits. Improved aeration in the interim. Electronically signed by: Parveen Garcia MD 12/20/2017 6:30 PM EDT
[2017-12-20 20:52] LABS: ABG Base Excess 1.4 mmol/L (-2-2); ABG PCO2 47 mmHg (38-42); ABG PO2 127 mmHg (61-120)
[2017-12-21] MEDS: Levothyroxine 50 MCG Tablet PO SCH (05:21)
--- NOTE | 2017-12-21 07:42 | P.PN ---
Subjective Interval history: Follow-up of patient with altered mental status. Patient status post VPS tap at the bedside performed by neurosurgery. Patient status post shunt revision 12/18/17. Patient seen and examined. Patient appears lethargic. Minimal verbalization. Does follow simple commands. Moans no in answer to questions. In the process of being set up for EEG study. Physical Exam Vital signs: Vital Signs 12/20/17 08:00 12/20/17 11:10 12/20/17 12:00 Temperature 98.5 F 99 F Pulse Rate 66 73 Respiratory Rate 20 20 Blood Pressure 142/66 H 105/84 Pulse Oximetry 100 97 99 12/20/17 16:00 12/20/17 20:00 12/21/17 04:00 Temperature 98.6 F 99.1 F 99.6 F Pulse Rate 70 76 73 Respiratory Rate 20 16 18 Blood Pressure 110/70 138/62 167/70 H Pulse Oximetry 99 100 99 Intake & Output 12/20/17 12/21/17 12/21/17 18:59 06:59 18:59 Intake Total 157.5 / 157.5 1587.5 / 1587.5 Output Total 2 / 2 Balance 155.5 / 155.5 1587.5 / 1587.5 Weight 107 kg Intake: IV 157.5 / 157.5 1107.5 / 1107.5 D50W Syringe 50 ML @ 0 mls/hr . 50 / 50 ROUTE .[facility] Rx#:[id number] D5W/1/2NS + KCL 10 mEq Inj 1, 1000 / 1000 000 ML @ 100 mls/hr IV.CONT . Q10H [facility] Rx#:[id number] Keppra Inj 750 MG In NS Inj 100 107.5 / 107.5 107.5 / 107.5 ML @ 400 mls/hr IV.SIG Q12H [facility] Rx#:[id number] Oral 480 / 480 Output: Urine 2 / 2 Other: # Voids 4 Date of Last Bowel Movement 12/21/17 # Bowel Movements 3 Narrative: GENERAL: WDWN obese -[place] female patient, in no acute distress. Lethargic. Moans no as response to questions. Follows some simple commands. SKIN: Warm and dry. HEAD: Normocephalic. s/p shunt revision, sydnie intact, appears to be healing well. EYES: Patient is blind. No scleral icterus. No injection or drainage. ENT: No nasal bleeding or discharge. Mucous membranes pink and moist. NECK: Trachea midline. CARDIOVASCULAR: Regular rate and rhythm. No M/R/G. RESPIRATORY: No accessory muscle use. Poor effort. Clear to auscultation anteriorly. Breath sounds equal bilaterally. GASTROINTESTINAL: Abdomen soft, non-tender, nondistended. MUSCULOSKELETAL: Extremities without clubbing, cyanosis, or edema. No obvious deformities. NEUROLOGICAL: Lethargic. Able to follow simple commands. Able to ticket speculator with the right hand and spontaneously wiggle toes on right foot. Unable to ticket speculator with left hand and no spontaneous movement noted of LLE. - Urinary Catheter Management Indwelling Urethral Catheter Cath placed during this visit: yes, but has since been removed by the nurse Reason for continuing: Hourly intake/output Insertion date: 12/18/17 Insertion time: 16:55 Removal time: 18:34 Results - Labs CBC & Chem 7: 12/20/17 13:20 12/21/17 06:43 Laboratory Results - last 24 hr 12/20/17 12/20/17 12/20/17 07:14 07:44 08:44 WBC RBC Hgb Hct MCV MCH MCHC RDW Plt Count MPV Neut % (Auto) Lymph % (Auto) [place] % (Auto) Eos % (Auto) Baso % (Auto) Neut # (Auto) Lymph # (Auto) [place] # (Auto) Eos # (Auto) Baso # (Auto) WBC Differential Differential Comment Puncture Site Patient Temperature O2 Saturation ABG pH ABG pCO2 ABG pO2 ABG HCO3 ABG O2 Content ABG Base Excess ABG Methemoglobin Derik Test Hemoglobin Carboxyhemoglobin O2 Delivery Device Liter Flow Critical Value Sodium 149 H Potassium 3.8 Chloride 115 H Carbon Dioxide 27.1 Anion Gap 7 BUN 17 Creatinine 1.22 H Estimated GFR 45 L POC Glucose 59 L 140 H Random Glucose 70 L Lactic Acid Calcium 8.0 L Ammonia 12/20/17 12/20/17 12/20/17 13:20 13:45 17:24 WBC 8.2 RBC 3.59 L Hgb 9.5 L Hct 30.3 L MCV 84.3 MCH 26.3 L MCHC 31.2 L RDW 16.3 Plt Count 270 MPV 7.6 Neut % (Auto) 63.8 Lymph % (Auto) 22.8 [place] % (Auto) 6.4 Eos % (Auto) 6.1 H Baso % (Auto) 0.9 Neut # (Auto) 5.3 Lymph # (Auto) 1.9 [place] # (Auto) 0.5 Eos # (Auto) 0.5 H Baso # (Auto) 0.1 WBC Differential . Differential Comment Auto diff final Puncture Site Patient Temperature O2 Saturation ABG pH ABG pCO2 ABG pO2 ABG HCO3 ABG O2 Content ABG Base Excess ABG Methemoglobin Derik Test Hemoglobin Carboxyhemoglobin O2 Delivery Device Liter Flow Critical Value Sodium Potassium Chloride Carbon Dioxide Anion Gap BUN Creatinine Estimated GFR POC Glucose 72 105 Random Glucose Lactic Acid Calcium Ammonia 12/20/17 12/20/17 12/20/17 18:50 18:50 20:40 WBC RBC Hgb Hct MCV MCH MCHC RDW Plt Count MPV Neut % (Auto) Lymph % (Auto) [place] % (Auto) Eos % (Auto) Baso % (Auto) Neut # (Auto) Lymph # (Auto) [place] # (Auto) Eos # (Auto) Baso # (Auto) WBC Differential Differential Comment Puncture Site Left brachial Patient Temperature 98.6 O2 Saturation 96 ABG pH 7.37 L ABG pCO2 47 H ABG pO2 127 H ABG HCO3 26 ABG O2 Content 12.4 ABG Base Excess 1.4 ABG Methemoglobin 1.4 Derik Test Present Hemoglobin 9.0 L Carboxyhemoglobin 0.9 O2 Delivery Device Nasal cannula Liter Flow 2.50 Critical Value No Sodium Potassium Chloride Carbon Dioxide Anion Gap BUN Creatinine Estimated GFR POC Glucose Random Glucose Lactic Acid 1.2 Calcium Ammonia 29 12/20/17 12/21/17 21:55 05:20 WBC RBC Hgb Hct MCV MCH MCHC RDW Plt Count MPV Neut % (Auto) Lymph % (Auto) [place] % (Auto) Eos % (Auto) Baso % (Auto) Neut # (Auto) Lymph # (Auto) [place] # (Auto) Eos # (Auto) Baso # (Auto) WBC Differential Differential Comment Puncture Site Patient Temperature O2 Saturation ABG pH ABG pCO2 ABG pO2 ABG HCO3 ABG O2 Content ABG Base Excess ABG Methemoglobin Derik Test Hemoglobin Carboxyhemoglobin O2 Delivery Device Liter Flow Critical Value Sodium Potassium Chloride Carbon Dioxide Anion Gap BUN Creatinine Estimated GFR POC Glucose 89 85 Random Glucose Lactic Acid Calcium Ammonia Microbiology 12/19/17 18:00 Blood - Peripheral Aerobic Blood Culture - Preliminary No growth in 1 day 12/19/17 18:00 Blood - Peripheral Anaerobic Blood Culture - Preliminary No growth in 1 day 12/19/17 17:51 Blood - Peripheral Aerobic Blood Culture - Preliminary No growth in 1 day 12/19/17 17:51 Blood - Peripheral Anaerobic Blood Culture - Preliminary No growth in 1 day 12/17/17 17:45 Shunt Fluid Gram Stain - Final 12/17/17 17:45 Shunt Fluid CSF Culture - Final No growth in 72 hours (aerobically and anaerobically ) - Imaging Impressions Chest X-Ray 12/20/17 00:00 CONCLUSION: Within normal limits. Improved aeration in the interim. Assessment and Plan - Assessment (1) Altered mental status Code(s): R41.82 - Altered mental status, unspecified Status: Acute (2) Hydrocephalus Code(s): G91.9 - Hydrocephalus, unspecified Status: Acute - Plan 62-year-old -[place] female with history of brain tumor status post resection and MATH TUTOR shunt placement, prior CVA, prior DVT/PE anticoagulated on Coumadin, and seizure disorder transferred from [facility] for evaluation of shunt malfunction after the patient presented with AMS. Labs from the outlying facility revealed white count of 9.0, hemoglobin 12.5, hematocrit 38.9, platelet count 329, PT 27.6, INR 2.5, APTT 40.8, Sodium 145, potassium 5.2 , chloride 106, CO2 23, anion gap 21, BUN 24, creatinine 1.16, glucose 102, calcium 9.2, total bili 0.2, AST 20, ALT 15, alkaline phosphatase 98, total protein 8.1, and albumin 4.4. CT of the brain revealed a shunt tube entering the right lateral ventricle with development of hydrocephalus and transependymal flow of CSF since the prior study suggesting shunt failure. Altered mental status Hx of hydrocephalus s/p MATH TUTOR shunt - Neurosurgery consulted s/p VPS tap at the bedside with CSF fluid sent for evaluation (cytology and culture). CSF fluid does not appear infected. - s/p shunt revision 12/18/17, [place] x 2 weeks. - MRI brain shows tumor in resection cavity. Per NS, patient will need to have re-imaging in 3 mos. - Oncology following, appreciate assistance. - EEG pending - ST following, on pureed honey thickened diet Fever Tmax 100.8, patient has been afebrile x 24hrs BCX NG x 2 day UA no culture indicated WBC WNL CXR unremarkable, images reviewed by me - follow blood cx until finalized - monitor temp trend Hypoglycemia BS 59 - Started on D5, blood sugars better, continue - continue accucheks - hypoglycemic protocol Diabetes A1c 6.1 - will continue to hold long acting insulin - continue accucheks as above Hypernatremia, resolved RAQUEL on suspected CKD, suspect secondary to poor oral intake - Cr trending down - avoid nephrotoxic agents - Continue to monitor kidney function as indicated. Hypothyroidism - TSH WNL - Continue on Synthroid H/o recurrent DVT/PE - Anticoagulated on Coumadin with INR 2.5 - Doppler U/S negative for DVT - Coumadin on hold. Will resume Coumadin when ok with NS Seizures - Continue Keppra Code Status: FULL Discussed Condition With: patient, nursing staff, Dr. Bacon Discharge Planning: Not ready for discharge. D/C pending Oncology and NS clearance and clinical improvement.
[2017-12-21 08:43] LABS: Carbon Dioxide 25.3 meq/L (21.0-32.0); Potassium 3.5 meq/L (3.5-5.1)
[2017-12-21] MEDS: Escitalopram 10 MG Tablet PO SCH (08:56)
[2017-12-21] MEDS: Senna/Docusate Sodium 8.6/50 MG Tablet PO SCH ×2 (08:57→23:17)
[2017-12-21] MEDS: Lisinopril 5 MG Tablet PO SCH (08:57)
[2017-12-21] MEDS: KCL 10 mEq/D5W/NaCl 0.45% Inj 1,000 ML IV.CONT SCH ×2 (08:58→19:41)
[2017-12-21] MEDS: LEVETIRACETAM IV.SIG SCH ×2 (09:02→23:15)
[2017-12-21] MEDS: SODIUM CHLOR 0.9% IV.SIG SCH ×2 (09:02→23:15)
--- NOTE | 2017-12-21 10:46 | MB ---
cc: Stone Santamaria MD DATE: 12/21/2017 ATTENDING PHYSICIAN: Dr. Farah. REASON FOR CONSULTATION: Oncology consult to render an opinion on a patient with a brain mass. HISTORY OF PRESENT ILLNESS: The patient is a 62-year-old -Maldivian female transferred here from [facility] for evaluation of malfunction RUM PROCESSING OPERATOR shunt. The patient is confused and not able to provide a history. History obtained from the chart. Apparently, the patient noted to have worsening confusion for several days. She also noted decreased appetite. She was not able to communicate with her daughter. She was brought into the [facility] and CT report showed dilated ventricle. She was then transferred here for further neurosurgical intervention. On 12/18/2017, she had a RUM PROCESSING OPERATOR shunt revision. She reportedly had a history of brain tumor resected twice, but we do not have a detailed history. During this hospital stay, she had an MRI of the brain, which showed a 2.5 cm x 2.6 cm mass arising from possibly the dura involving the right cavernous sinus and displacing the brainstem involving the basilar artery. The patient denies any headache or visual changes. She denies any chest pain. She says she has occasional cough, but no significant shortness of breath. She has no vomiting. She occasionally has nausea. She has abdominal pain. She denies any dysuria or hematuria. She has complained of left knee pain. PAST MEDICAL HISTORY: 1. Brain tumor. 2. Stroke with left-sided weakness. 3. Deep venous thrombosis and pulmonary embolism and seizure disorder. 4. Hypothyroidism. PAST SURGICAL HISTORY: 1. Resection brain tumor twice 2. Hysterectomy. 3. 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 4. RUM PROCESSING OPERATOR shunt placement. FAMILY HISTORY: No reported cancer. SOCIAL HISTORY: No reported tobacco or alcohol use. ALLERGIES: HEPARIN, SULFA. CURRENT MEDICATIONS: 1. Lexapro 2. Keppra. 3. Levothyroxine. 4. Lisinopril. 5. Nevaeh-Colace. REVIEW OF SYSTEMS: CONSTITUTIONAL: Generalized weakness. EYE: Negative. ENT: Negative. CARDIOVASCULAR: No chest pressure, or palpitations. RESPIRATORY: Denies shortness of breath. Occasional cough. GASTROINTESTINAL: Negative. GENITOURINARY: Negative. MUSCULOSKELETAL: As above. ENDOCRINE: Negative. HEMATOLOGIC: Negative. NEUROLOGIC: As above. PSYCHIATRIC: As above. PHYSICAL EXAMINATION: VITAL SIGNS: Temperature 99.6, blood pressure 167/70, O2 saturation 99%. GENERAL: She is not oriented to events or place. HEENT: Dressing on her head is dry. Pupils equal, round, reactive to light; oropharynx, dry mucosa. NECK: No thyromegaly. LYMPHATIC: No palpable cervical, clavicular, axillary, or inguinal lymph nodes. CARDIOVASCULAR: Regular S1, S2 normal. LUNGS: Clear to auscultation. No wheeze or rhonchi. ABDOMEN: Soft, nontender, obese. Difficult to palpate liver or spleen. EXTREMITIES: No cyanosis, clubbing, or edema. SKIN: No rash or petechiae. NEUROLOGIC: Left-sided weakness. LABORATORY DATA: Laboratory data dated 12/20/2012 was reviewed. ASSESSMENT: 1. Brain tumor. Reportedly, she had a brain tumor resected twice in the past at [facility]. We do not have a detailed history. It is unclear the histology of the brain tumor. However, based on her history and MRI, this possibly could be a meningioma. She was transferred here for revision of the RUM PROCESSING OPERATOR shunt. MRI showed a 2.5 cm x 1.6 cm mass arising adjacent to the right cerebellar peduncle/brachium pontis extending cephalad to involve the cavernous sinus with circumferential involvement of the right carotid artery. There was minimal compression of the ventricle. The mass appeared to be arising from the dura and the radiologist thinks that it is most likely a meningioma. The patient has been evaluated by Neurosurgery and no surgical intervention recommended at this time. If this indeed is a meningioma, treatment will be surgical resection or radiation if she is not a candidate for resection. Patient is from [facility] area. Recommend that she followup with a neurosurgeon for further management of this brain tumor. 2. History of stroke. 3. History of deep venous thrombosis and pulmonary embolism. 4. History of seizure disorder. RECOMMENDATIONS: 1. We will try to see if we can get more information from her daughter. 2. I am going to leave the treatment recommendation to Neurosurgery. If this is a meningioma, treatment will be surgical resection or radiation if she is not a candidate for resection. She can followup with her local neurosurgeon. Thank you Dr. Farah for asking me to see this patient. MD EDGAR Dubose/pedro , 09:47 AM , 10:01 AM ALICIA
--- NOTE | 2017-12-21 16:57 | P.PNNS ---
Subjective Interval history: Pt awake and alert. Denies headache. Had nausea earlier but resolved. Pt with some confusion states her daughter is a child and looking for her. Physical Exam Vital signs: Vital Signs 12/20/17 20:00 12/21/17 04:00 12/21/17 08:00 Temperature 99.1 F 99.6 F 96.7 F L Pulse Rate 76 73 81 Respiratory Rate 16 18 19 Blood Pressure 138/62 167/70 H 140/59 L Pulse Oximetry 100 99 97 12/21/17 12:00 12/21/17 16:00 Temperature 98.4 F 98.1 F Pulse Rate 75 73 Respiratory Rate 19 19 Blood Pressure 135/63 185/75 H Pulse Oximetry 96 99 Intake & Output 12/20/17 12/21/17 12/21/17 18:59 06:59 18:59 Intake Total 157.5 / 157.5 1587.5 / 1587.5 1107.5 / 1107.5 Output Total 2 / 2 Balance 155.5 / 155.5 1587.5 / 1587.5 1107.5 / 1107.5 Weight 107 kg Intake: IV 157.5 / 157.5 1107.5 / 1107.5 1107.5 / 1107.5 D50W Syringe 50 ML @ 0 mls/hr . 50 / 50 ROUTE .STK-MED ONE Rx#:[id number] D5W/1/2NS + KCL 10 mEq Inj 1, 1000 / 1000 1000 / 1000 000 ML @ 100 mls/hr IV.CONT . Q10H NICKI Rx#:[id number] Keppra Inj 750 MG In NS Inj 100 107.5 / 107.5 107.5 / 107.5 107.5 / 107.5 ML @ 400 mls/hr IV.SIG Q12H NICKI Rx#:[id number] Oral 480 / 480 Output: Urine 2 / 2 Other: # Voids 4 Date of Last Bowel Movement 12/21/17 12/20/17 # Bowel Movements 3 - Constitutional no acute distress, obese, cooperative - Routine HEENT Exam Head: Absent: normocephalic (Right scalp sutures in place from shunt revision.) ENT: Present: oropharynx clear - Routine Neck Exam Present: trachea midline - Routine Respiratory Exam Present: CTA bilaterally. Absent: respiratory distress, rhonchi, wheezes - Routine Cardiovascular Exam Present: RRR, S1, S2. Absent: murmur - Routine Abdominal Exam Present: soft, normoactive bowel sounds - Routine Skin Exam Absent: cyanosis, erythema - Routine Neurological Exam Present: alert, motor deficit (Left hemiparesis.), altered mental status (Some confusion looking for her daughter who is an adult and states she is 7-8 y/o), normal speech - Detailed Neurological Exam: Coma Scale Eye Opening: Spontaneous Verbal Response: Confused Motor Response: Obey commands [place] Coma Scale Total: 14 - Routine Psychiatric Exam Present: cooperative. Absent: good insight, good judgment, anxious, agitated - Urinary Catheter Management Indwelling Urethral Catheter Cath placed during this visit: yes, but has since been removed by the nurse Reason for continuing: Hourly intake/output Insertion date: 12/18/17 Insertion time: 16:55 Removal time: 18:34 Assessment and Plan - Assessment (1) Hydrocephalus Code(s): G91.9 - Hydrocephalus, unspecified Status: Acute (2) Altered mental status Code(s): R41.82 - Altered mental status, unspecified Status: Acute - Plan Imagin: failure scan, significant ventriculomegaly. Strata NSC @1.5 : baseline scan, normal ventricular size with strata NSC @1.5 12/17/17: craniectomy defect in the right presigmoid area. Right frontal VPS entering the right lateral ventricle and terminating into the 3rd ventricle. Ventriculomegaly noted. right frontal hypodensity/encephalomalacia. Strata NSC @1.5 12/18/17: right frontal VPS in ventricle with decreased ventricular size A/P: 62 yo with PMH of CVA, DVT/PE on coumadin, craniotomy s/p VPS with shunt malfunction, shunt revision (12/18) -post op CT head with decrease in ventricular size, therefore not likely cause of patients fluctuating neuro exam -repeat Skull Xray demonstrates appropriate valve setting (80) and this was confirmed by Dr. Burk yesterday after MRI Brain -CSF cytology negative at 72 hours. -MRI brain with and without contrast (12/19/17) shows tumor in resection cavity ( family reports without any follow up imaging) -- will try to coordinate with family this morning -- patient has history of resection at [facility] ~years ago -- if they wish to proceed with treatment here, consider repeat imaging in 3 months with MRI Brain -- baseline patient is blind and has multiple neuropthalmologic findings, but does not give a good exam at this time. -normalize: activity as tolerated PT/OT -- will need rehab -Speech Therapy to evaluate diet today -[place] for 2 weeks. ok to shower 48 hours post op
--- NOTE | 2017-12-21 17:07 | MG ---
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 Some diffuse 6 Hz slowing is seen at 40-50 microvolts. Occasional 4 Hz slowing noted, moaning is noted from the patient. At times some delta slowing is seen. Photic stimulation is performed without significant posterior driving. IMPRESSION: Diffuse slowing consistent with a mild diffuse encephalopathy, but no focal abnormality was noted. There is mild to moderate diffuse encephalopathy. No focal abnormalities noted. No seizure activity was seen. MD ARTHUR Bianchi/david , 04:49 PM , 04:53 PM
[2017-12-22] MEDS: KCL 10 mEq/D5W/NaCl 0.45% Inj 1,000 ML IV.CONT SCH (05:43)
[2017-12-22] MEDS: Levothyroxine 50 MCG Tablet PO SCH (05:44)
[2017-12-22] MEDS: Escitalopram 10 MG Tablet PO SCH (09:53)
[2017-12-22] MEDS: Senna/Docusate Sodium 8.6/50 MG Tablet PO SCH ×2 (09:53→20:55)
[2017-12-22] MEDS: Lisinopril 5 MG Tablet PO SCH (09:53)
--- NOTE | 2017-12-22 10:53 | P.PN ---
Subjective Interval history: Follow-up of patient with altered mental status. Patient status post VPS tap at the bedside performed by neurosurgery. Patient status post shunt revision 12/18/17. Patient seen and examined. Patient states she slept ok. She denies any acute medical complaints. Discussed with nursing staff, no acute events noted overnight. Physical Exam Vital signs: Vital Signs 12/21/17 12:00 12/21/17 16:00 12/21/17 17:03 Temperature 98.4 F 98.1 F Pulse Rate 75 73 Respiratory Rate 19 19 Blood Pressure 135/63 185/75 H 158/66 H Pulse Oximetry 96 99 12/21/17 20:00 12/22/17 00:00 12/22/17 01:59 Temperature 97.9 F 99.2 F Pulse Rate 64 71 Respiratory Rate 19 18 18 Blood Pressure 164/70 H 124/56 L Pulse Oximetry 100 99 12/22/17 04:00 12/22/17 08:00 Temperature 98 F 97.5 F L Pulse Rate 67 55 L Respiratory Rate 19 17 Blood Pressure 170/76 H 112/52 L Pulse Oximetry 97 99 Intake & Output 12/21/17 12/22/17 12/22/17 18:59 06:59 18:59 Intake Total 1107.5 / 1107.5 1107.5 / 1107.5 Balance 1107.5 / 1107.5 1107.5 / 1107.5 Weight 232.8 kg Intake: IV 1107.5 / 1107.5 1107.5 / 1107.5 D5W/1/2NS + KCL 10 mEq Inj 1, 1000 / 1000 1000 / 1000 000 ML @ 100 mls/hr IV.CONT . Q10H NICKI Rx#:[id number] Keppra Inj 750 MG In NS Inj 100 107.5 / 107.5 107.5 / 107.5 ML @ 400 mls/hr IV.SIG Q12H NICKI Rx#:[id number] Other: # Voids 2 # Incontinent Voids 1 Date of Last Bowel Movement 12/21/17 12/21/17 # Bowel Movements 1 Narrative: GENERAL: WDWN obese -Dominican female patient, in no acute distress. Afebrile. VSS. SKIN: Warm and dry. HEAD: Normocephalic. s/p shunt revision, sydnie intact, appears to be healing well. EYES: Patient is blind. No scleral icterus. No injection or drainage. ENT: No nasal bleeding or discharge. Mucous membranes pink and moist. NECK: Trachea midline. CARDIOVASCULAR: Regular rate and rhythm. No M/R/G. RESPIRATORY: No accessory muscle use. Poor effort. Clear to auscultation anteriorly. Breath sounds equal bilaterally. GASTROINTESTINAL: Abdomen soft, non-tender, nondistended. MUSCULOSKELETAL: Extremities without clubbing, cyanosis, or edema. No obvious deformities. NEUROLOGICAL: Lethargic. Able to follow simple commands. 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 Unable to vending route servicer with left hand and no spontaneous movement noted of LLE. - Urinary Catheter Management Indwelling Urethral Catheter Cath placed during this visit: yes, but has since been removed by the nurse Reason for continuing: Hourly intake/output Insertion date: 12/18/17 Insertion time: 16:55 Removal time: 18:34 Results - Labs CBC & Chem 7: 12/20/17 13:20 12/21/17 06:43 Laboratory Results - last 24 hr 12/21/17 12/21/17 12/21/17 12:06 16:34 19:56 POC Glucose 106 150 H 134 H 12/22/17 10:05 POC Glucose 142 H Microbiology 12/19/17 18:00 Blood - Peripheral Aerobic Blood Culture - Preliminary No growth in 2 days 12/19/17 18:00 Blood - Peripheral Anaerobic Blood Culture - Preliminary No growth in 2 days 12/19/17 17:51 Blood - Peripheral Aerobic Blood Culture - Preliminary No growth in 2 days 12/19/17 17:51 Blood - Peripheral Anaerobic Blood Culture - Preliminary No growth in 2 days Assessment and Plan - Assessment (1) Altered mental status Code(s): R41.82 - Altered mental status, unspecified Status: Acute (2) Hydrocephalus Code(s): G91.9 - Hydrocephalus, unspecified Status: Acute - Plan 62-year-old -Dominican female with history of brain tumor status post resection and QUARRY BOSS shunt placement, prior CVA, prior DVT/PE anticoagulated on Coumadin, and seizure disorder transferred from [facility] for evaluation of shunt malfunction after the patient presented with AMS. Labs from the outlying facility revealed white count of 9.0, hemoglobin 12.5, hematocrit 38.9, platelet count 329, PT 27.6, INR 2.5, APTT 40.8, Sodium 145, potassium 5.2 , chloride 106, CO2 23, anion gap 21, BUN 24, creatinine 1.16, glucose 102, calcium 9.2, total bili 0.2, AST 20, ALT 15, alkaline phosphatase 98, total protein 8.1, and albumin 4.4. CT of the brain revealed a shunt tube entering the right lateral ventricle with development of hydrocephalus and transependymal flow of CSF since the prior study suggesting shunt failure. Altered mental status Hx of hydrocephalus s/p QUARRY BOSS shunt - Neurosurgery consulted s/p VPS tap at the bedside with CSF fluid sent for evaluation (cytology and culture). CSF fluid does not appear infected. - s/p shunt revision 12/18/17, Sydnie x 2 weeks. - MRI brain shows tumor in resection cavity. Per NS, patient will need to have re-imaging in 3 mos. - Oncology following, appreciate assistance. - EEG shows diffuse slowing, no focal abnormality - ST following, on pureed nectar thickened diet Fever, resolved Tmax 100.8, patient has been afebrile x 48hrs BCX NG x 2 day UA no culture indicated WBC WNL CXR unremarkable, images reviewed by me - follow blood cx until finalized - monitor temp trend Hypoglycemia BS 59 - Started on D5, blood sugars better, hold D5 and continue to monitor BS - continue accucheks - hypoglycemic protocol Diabetes A1c 6.1 - will continue to hold long acting insulin - continue accucheks as above Hypernatremia, resolved RAQUEL on suspected CKD, suspect secondary to poor oral intake - Cr trending down - avoid nephrotoxic agents - Continue to monitor kidney function as indicated. Hypothyroidism - TSH WNL - Continue on Synthroid H/o recurrent DVT/PE - Anticoagulated on Coumadin with INR 2.5 - Doppler U/S negative for DVT - Coumadin on hold. Will resume Coumadin when ok with NS Seizures - Continue Keppra Code Status: FULL Discussed Condition With: patient, nursing staff, Dr. Bacon Discharge Planning: Not ready for discharge. D/C pending Oncology and NS clearance and clinical improvement.
--- NOTE | 2017-12-22 13:34 | P.PNONC ---
Subjective Interval history: Afebrile Patient opens eyes briefly during exam Shakes head no when asked about headache or nausea When asked if she knows what hospital she is in, she replies "[facility]." Objective Vital Signs/Intake & Output: Vital Signs 12/21/17 16:00 12/21/17 17:03 12/21/17 20:00 Temperature 98.1 F 97.9 F Pulse Rate 73 64 Respiratory Rate 19 19 Blood Pressure 185/75 H 158/66 H 164/70 H Pulse Oximetry 99 100 12/22/17 00:00 12/22/17 01:59 12/22/17 04:00 Temperature 99.2 F 98 F Pulse Rate 71 67 Respiratory Rate 18 18 19 Blood Pressure 124/56 L 170/76 H Pulse Oximetry 99 97 12/22/17 08:00 12/22/17 12:00 Temperature 97.5 F L 97.2 F L Pulse Rate 55 L 56 L Respiratory Rate 17 17 Blood Pressure 112/52 L 119/57 L Pulse Oximetry 99 100 Intake & Output 12/21/17 12/22/17 12/22/17 18:59 06:59 18:59 Intake Total 1107.5 / 1107.5 1107.5 / 1107.5 Balance 1107.5 / 1107.5 1107.5 / 1107.5 Weight 513 lb 3.778 oz Intake: IV 1107.5 / 1107.5 1107.5 / 1107.5 D5W/1/2NS + KCL 10 mEq Inj 1, 1000 / 1000 1000 / 1000 000 ML @ 100 mls/hr IV.CONT . Q10H NICKI Rx#:[id number] Keppra Inj 750 MG In NS Inj 100 107.5 / 107.5 107.5 / 107.5 ML @ 400 mls/hr IV.SIG Q12H NICKI Rx#:[id number] Other: # Voids 2 # Incontinent Voids 1 Date of Last Bowel Movement 12/21/17 12/21/17 12/21/17 # Bowel Movements 1 Result Diagrams: 12/20/17 13:20 12/21/17 06:43 Laboratory Results: Laboratory Results - last 24 hr 12/21/17 12/21/17 12/22/17 16:34 19:56 10:05 POC Glucose 150 H 134 H 142 H Culture Results: Microbiology 12/19/17 18:00 Aerobic Blood Culture - Preliminary Blood - Peripheral No growth in 3 days Anaerobic Blood Culture - Preliminary No growth in 3 days 12/19/17 17:51 Aerobic Blood Culture - Preliminary Blood - Peripheral No growth in 3 days Anaerobic Blood Culture - Preliminary No growth in 3 days 12/17/17 17:45 Gram Stain - Final Shunt Fluid CSF Culture - Final No growth in 72 hours (aerobically and anaerobically) Medications: Active Medications Generic Name Dose Route Start Last Admin Trade Name Reyna PRN Reason Stop Dose Admin Escitalopram Oxalate 10 mg 12/18/17 09:00 12/22/17 09:53 Lexapro PO 10 mg DAILY NICKI Administration Potassium Chloride/Dextrose/Sod Cl 1,000 mls @ 100 mls/hr 12/20/17 11:15 05:43 D5w/1/2ns + Kcl 10 Meq Inj IV.CONT 100 mls/hr .Q10H NICKI Administration Levetiracetam 750 mg 12/18/17 10:00 12/18/17 23:06 Keppra PO Not Given Q12H NICKI Levothyroxine Sodium 50 mcg 12/18/17 06:00 12/22/17 05:44 Synthroid PO 50 mcg DAILY@0600 NICKI Administration Lisinopril 5 mg 12/18/17 09:00 12/22/17 09:53 Prinivil PO 5 mg DAILY NICKI Administration Senna/Docusate Sodium 1 tab 12/17/17 21:00 12/22/17 09:53 Nevaeh-Colace PO 1 tab BID NICKI Administration Sodium Chloride 2 ml 12/18/17 09:00 12/22/17 12:04 Ns Flush IV.FLUSH Not Given BID NICKI Objective Remarks: GENERAL: Overweight older female resting in bed. Her eyes are closed she is breathing easy and unlabored. SKIN: Warm and dry. HEAD: Normocephalic. EYES: No scleral icterus. Bilateral eyes deviated medially NECK: No JVD or lymphadenopathy. CARDIOVASCULAR: Regular rate and rhythm without murmurs. RESPIRATORY: Breath sounds equal bilaterally. On 2 L nasal cannula GASTROINTESTINAL: Abdomen soft, non-tender, nondistended. EXTREMITIES: No cyanosis, or edema. MUSCULOSKELETAL: Adequate muscle tone. NEUROLOGICAL: Lethargic and confused. Follows commands. 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 She reportedly has history of brain tumor resection 2 at the [facility]. This hospitalization she was noted to have a mass on MRI measuring 2.5 cm x 2.6 cm arising from the dura involving the right cavernous sinus and displacing the brainstem involving the basilar artery. Neurosurgery is following. Oncology consulted to give recommendations for new brain tumor. 1. Patient is status post shunt revision on December 18. In regards to mass, neurosurgery recommends re-imaging in 3 months. 2. Called and spoke with pt's daughter; she does not remember what type of tumor was previously resected, only that it was 'benign.' 3. Continue supportive care. - Attending Statement The exam, history, and the medical decision-making described in the above note were completed with the assistance of the mid-level provider. I reviewed and agree with the findings presented. I attest that I had a [id number] encounter with the patient on the same day, and personally performed and documented my assessment and findings in the medical record. Patient is still confused. Her daughter stated that patient had resection of benign tumor. I suspect she likely had meningioma. Neurosurgery recommended reimaging in 3 months. No further recommendation from medical oncology standpoint.
[2017-12-22] MEDS: SODIUM CHLOR 0.9% IV.SIG SCH (19:49)
[2017-12-22] MEDS: LEVETIRACETAM IV.SIG SCH (19:49)
--- NOTE | 2017-12-22 19:52 | P.PNNS ---
Subjective Interval history: Pt awakens to voice but goes back to sleep. She denies headaches. Follows simple commands. Left hemiparesis stable. Physical Exam Vital signs: Vital Signs 12/21/17 20:00 12/22/17 00:00 12/22/17 01:59 Temperature 97.9 F 99.2 F Pulse Rate 64 71 Respiratory Rate 19 18 18 Blood Pressure 164/70 H 124/56 L Pulse Oximetry 100 99 12/22/17 04:00 12/22/17 08:00 12/22/17 12:00 Temperature 98 F 97.5 F L 97.2 F L Pulse Rate 67 55 L 56 L Respiratory Rate 19 17 17 Blood Pressure 170/76 H 112/52 L 119/57 L Pulse Oximetry 97 99 100 12/22/17 16:00 Temperature 98.2 F Pulse Rate 54 L Respiratory Rate 17 Blood Pressure 149/66 H Pulse Oximetry 99 Intake & Output 12/22/17 12/22/17 12/23/17 06:59 18:59 06:59 Intake Total 1107.5 / 1107.5 720 / 720 Balance 1107.5 / 1107.5 720 / 720 Weight 232.8 kg Intake: IV 1107.5 / 1107.5 D5W/1/2NS + KCL 10 mEq Inj 1, 1000 / 1000 000 ML @ 100 mls/hr IV.CONT . Q10H NICKI Rx#:[id number] Keppra Inj 750 MG In NS Inj 100 107.5 / 107.5 ML @ 400 mls/hr IV.SIG Q12H NICKI Rx#:[id number] Oral 720 / 720 Other: # Voids 2 # Incontinent Voids 1 3 Date of Last Bowel Movement 12/21/17 12/21/17 # Bowel Movements 0 - Constitutional no acute distress, obese, somnolent - Routine HEENT Exam Head: Absent: normocephalic (Incision clean and dry without any signs of infection.) Eye: Absent: EOMI (Pt is blind.) - Routine Neck Exam Present: trachea midline - Routine Respiratory Exam Present: CTA bilaterally. Absent: respiratory distress, rhonchi, wheezes - Routine Cardiovascular Exam Present: RRR, S1, S2. Absent: murmur - Routine Abdominal Exam Present: soft, normoactive bowel sounds. Absent: firm - Routine Skin Exam Absent: cyanosis, erythema - Routine Neurological Exam Present: motor deficit (Left hemiparesis.), altered mental status. Absent: alert (Pt fatigues easily but opens eyes to voice.), normal speech - Routine Psychiatric Exam Absent: anxious, agitated - Urinary Catheter Management Indwelling Urethral Catheter Cath placed during this visit: yes, but has since been removed by the nurse Reason for continuing: Hourly intake/output Insertion date: 12/18/17 Insertion time: 16:55 Removal time: 18:34 Assessment and Plan - Assessment (1) Hydrocephalus Code(s): G91.9 - Hydrocephalus, unspecified Status: Acute (2) Altered mental status Code(s): R41.82 - Altered mental status, unspecified Status: Acute - Plan Imagin: failure scan, significant ventriculomegaly. Strata NSC @1.5 : baseline scan, normal ventricular size with strata NSC @1.5 12/17/17: craniectomy defect in the right presigmoid area. Right frontal VPS entering the right lateral ventricle and terminating into the 3rd ventricle. Ventriculomegaly noted. right frontal hypodensity/encephalomalacia. Strata NSC @1.5 12/18/17: right frontal VPS in ventricle with decreased ventricular size A/P: 62 yo with PMH of CVA, DVT/PE on coumadin, craniotomy s/p VPS with shunt malfunction, shunt revision (12/18) -post op CT head with decrease in ventricular size, therefore not likely cause of patients fluctuating neuro exam -repeat Skull Xray demonstrates appropriate valve setting (80) and this was confirmed by Dr. Burk yesterday after MRI Brain -CSF cytology negative at 72 hours. -MRI brain with and without contrast (12/19/17) shows tumor in resection cavity ( family reports without any follow up imaging) -- will try to coordinate with family this morning -- patient has history of resection at [facility] ~years ago -- if they wish to proceed with treatment here, consider repeat imaging in 3 months with MRI Brain -- baseline patient is blind and has multiple neuropthalmologic findings, but does not give a good exam at this time. -normalize: activity as tolerated PT/OT -- will need rehab -Speech Therapy to evaluate diet today -[place] for 2 weeks. ok to shower 48 hours post op
[2017-12-22] MEDS: levETIRAcetam 250 MG Tablet PO SCH (21:00)
[2017-12-23] MEDS: Levothyroxine 50 MCG Tablet PO SCH (06:42)
--- NOTE | 2017-12-23 07:35 | P.PN ---
Subjective Interval history: Follow-up of patient with altered mental status. Patient status post VPS tap at the bedside performed by neurosurgery. Patient status post shunt revision 12/18/17. Patient seen and examined. Patient more alert this morning. She denies any complaints of pain. She denies any fever or chills. She denies any chest pain or shortness of breath. She denies any nausea, vomiting or abdominal pain. She reports good appetite. Physical Exam Vital signs: Vital Signs 12/22/17 08:00 12/22/17 12:00 12/22/17 16:00 Temperature 97.5 F L 97.2 F L 98.2 F Pulse Rate 55 L 56 L 54 L Respiratory Rate 17 17 17 Blood Pressure 112/52 L 119/57 L 149/66 H Pulse Oximetry 99 100 99 12/22/17 20:00 12/22/17 20:40 12/23/17 00:00 Temperature 98.3 F 97.0 F L Pulse Rate 59 L 58 L Respiratory Rate 16 18 Blood Pressure 118/56 L 175/63 H Pulse Oximetry 100 100 98 12/23/17 04:00 12/23/17 04:09 Temperature 98.2 F Pulse Rate 51 L Respiratory Rate 20 18 Blood Pressure 134/72 Pulse Oximetry 98 Intake & Output 12/22/17 12/23/17 12/23/17 18:59 06:59 18:59 Intake Total 720 / 720 0 / 0 Output Total 400 / 400 Balance 720 / 720 -400 / -400 Intake: IV 0 / 0 Oral 720 / 720 Output: Urine 400 / 400 Other: # Incontinent Voids 3 Date of Last Bowel Movement 12/21/17 12/22/17 # Bowel Movements 0 1 Narrative: GENERAL: WDWN obese -[place] female patient, in no acute distress. Awake and alert. Afebrile. VSS. SKIN: Warm and dry. HEAD: Normocephalic. s/p shunt revision, sydnie intact, appears to be healing well. EYES: Patient is blind. No scleral icterus. No injection or drainage. ENT: No nasal bleeding or discharge. Mucous membranes pink and moist. NECK: Trachea midline. CARDIOVASCULAR: Regular rate and rhythm. No M/R/G. RESPIRATORY: No accessory muscle use. Poor effort. Clear to auscultation anteriorly. Breath sounds equal bilaterally. GASTROINTESTINAL: Abdomen soft, non-tender, nondistended. MUSCULOSKELETAL: Extremities without clubbing, cyanosis, or edema. No obvious deformities. NEUROLOGICAL: Lethargic. Able to follow simple commands. Able to junior estimator with the right hand and spontaneously wiggle toes on right foot. Unable to junior estimator with left hand and no spontaneous movement noted of LLE. - Urinary Catheter Management Indwelling Urethral Catheter Cath placed during this visit: yes, but has since been removed by the nurse Reason for continuing: Hourly intake/output Insertion date: 12/18/17 Insertion time: 16:55 Removal time: 18:34 Results - Labs CBC & Chem 7: 12/20/17 13:20 12/21/17 06:43 Laboratory Results - last 24 hr 12/22/17 12/22/17 12/22/17 10:05 14:55 17:54 POC Glucose 142 H 138 H 85 12/22/17 20:03 POC Glucose 192 H Microbiology 12/19/17 18:00 Blood - Peripheral Aerobic Blood Culture - Preliminary No growth in 3 days 12/19/17 18:00 Blood - Peripheral Anaerobic Blood Culture - Preliminary No growth in 3 days 12/19/17 17:51 Blood - Peripheral Aerobic Blood Culture - Preliminary No growth in 3 days 12/19/17 17:51 Blood - Peripheral Anaerobic Blood Culture - Preliminary No growth in 3 days Assessment and Plan - Assessment (1) Altered mental status Code(s): R41.82 - Altered mental status, unspecified Status: Acute (2) Hydrocephalus Code(s): G91.9 - Hydrocephalus, unspecified Status: Acute - Plan 62-year-old -[place] female with history of brain tumor status post resection and WAREHOUSE ATTENDANT shunt placement, prior CVA, prior DVT/PE anticoagulated on Coumadin, and seizure disorder transferred from [facility] for evaluation of shunt malfunction after the patient presented with AMS. Labs from the outlying facility revealed white count of 9.0, hemoglobin 12.5, hematocrit 38.9, platelet count 329, PT 27.6, INR 2.5, APTT 40.8, Sodium 145, potassium 5.2 , chloride 106, CO2 23, anion gap 21, BUN 24, creatinine 1.16, glucose 102, calcium 9.2, total bili 0.2, AST 20, ALT 15, alkaline phosphatase 98, total protein 8.1, and albumin 4.4. CT of the brain revealed a shunt tube entering the right lateral ventricle with development of hydrocephalus and transependymal flow of CSF since the prior study suggesting shunt failure. Altered mental status Hx of hydrocephalus s/p WAREHOUSE ATTENDANT shunt - Neurosurgery consulted s/p VPS tap at the bedside with CSF fluid sent for evaluation (cytology and culture). CSF fluid does not appear infected. - s/p shunt revision 12/18/17, Sydnie x 2 weeks. - MRI brain shows tumor in resection cavity. Per NS, patient will need to have re-imaging in 3 mos. Discussed with CYDNEY Rosen, patient cleared for d/c from neurosurgery standpoint. - Oncology following, appreciate assistance. No further recommendations from med onc standpoint. Cleared for discharge. - EEG shows diffuse slowing, no focal abnormality - ST following, on pureed nectar thickened diet BUE edema s/p extravasation of IV Bilateral Doppler studies negative for DVT, superficial thrombosis left cephalic and basilic veins - Keep LUE elevated - ice packs Hypoglycemia BS 59 - Started on D5, blood sugars improved. BS remaining stable off of D5. - continue accucheks - hypoglycemic protocol Diabetes A1c 6.1 - will continue to hold long acting insulin - continue accucheks as above Hypernatremia, resolved RAQUEL on suspected CKD, suspect secondary to poor oral intake - Cr trending down - avoid nephrotoxic agents - Continue to monitor kidney function as indicated. Hypothyroidism - TSH WNL - Continue on Synthroid H/o recurrent DVT/PE - Anticoagulated on Coumadin with INR 2.5 at admission. Coumadin held secondary to neurosurgery procedure. INR now subtherapeutic. - Neurosurgery cleared to resume Coumadin. Pharmacy to dose. Coumadin 5mg daily. Seizures - Continue Keppra DVT prophylaxis - patient is on Coumadin Code Status: FULL Discussed Condition With: patient, nursing staff, Dr. Bacon Discharge Planning: Patient cleared for discharge from oncology and neurosurgery perspective. Case management assisting with placement/discharge planning. [place] refusing.
--- NOTE | 2017-12-23 07:48 | P.PNONC ---
Subjective Interval history: Patient is more alert today. She however is still not oriented. She denies any headache. She has no chest pain or shortness of breath. Objective Vital Signs/Intake & Output: Vital Signs 12/22/17 08:00 12/22/17 12:00 12/22/17 16:00 Temperature 97.5 F L 97.2 F L 98.2 F Pulse Rate 55 L 56 L 54 L Respiratory Rate 17 17 17 Blood Pressure 112/52 L 119/57 L 149/66 H Pulse Oximetry 99 100 99 12/22/17 20:00 12/22/17 20:40 12/23/17 00:00 Temperature 98.3 F 97.0 F L Pulse Rate 59 L 58 L Respiratory Rate 16 18 Blood Pressure 118/56 L 175/63 H Pulse Oximetry 100 100 98 12/23/17 04:00 12/23/17 04:09 Temperature 98.2 F Pulse Rate 51 L Respiratory Rate 20 18 Blood Pressure 134/72 Pulse Oximetry 98 Intake & Output 12/22/17 12/23/17 12/23/17 18:59 06:59 18:59 Intake Total 720 / 720 0 / 0 Output Total 400 / 400 Balance 720 / 720 -400 / -400 Intake: IV 0 / 0 Oral 720 / 720 Output: Urine 400 / 400 Other: # Incontinent Voids 3 Date of Last Bowel Movement 12/21/17 12/22/17 # Bowel Movements 0 1 Result Diagrams: 12/20/17 13:20 12/21/17 06:43 Laboratory Results: Laboratory Results - last 24 hr 12/22/17 12/22/17 12/22/17 10:05 14:55 17:54 POC Glucose 142 H 138 H 85 12/22/17 20:03 POC Glucose 192 H Culture Results: Microbiology 12/19/17 18:00 Aerobic Blood Culture - Preliminary Blood - Peripheral No growth in 3 days Anaerobic Blood Culture - Preliminary No growth in 3 days 12/19/17 17:51 Aerobic Blood Culture - Preliminary Blood - Peripheral No growth in 3 days Anaerobic Blood Culture - Preliminary No growth in 3 days 12/17/17 17:45 Gram Stain - Final Shunt Fluid CSF Culture - Final No growth in 72 hours (aerobically and anaerobically) Medications: Active Medications Generic Name Dose Route Start Last Admin Trade Name Freq PRN Reason Stop Dose Admin Clonidine HCl 0.1 mg 12/22/17 11:00 09/14/18 01:09 Catapres PO 0.1 mg Q6H PRN Administration SBP>160, DBP>90 Escitalopram Oxalate 10 mg 12/18/17 09:00 12/22/17 09:53 Lexapro PO 10 mg DAILY NICKI Administration Potassium Chloride/Dextrose/Sod Cl 1,000 mls @ 100 mls/hr 12/20/17 11:15 19:56 D5w/1/2ns + Kcl 10 Meq Inj IV.CONT Infused .Q10H NICKI Infusion Levetiracetam 750 mg 12/18/17 10:00 12/22/17 21:00 Keppra PO 750 mg Q12H NICKI Administration Levothyroxine Sodium 50 mcg 12/18/17 06:00 12/23/17 06:42 Synthroid PO 50 mcg DAILY@0600 NICKI Administration Lisinopril 5 mg 12/18/17 09:00 12/22/17 09:53 Prinivil PO 5 mg DAILY NICKI Administration Senna/Docusate Sodium 1 tab 12/17/17 21:00 12/22/17 20:55 Nevaeh-Colace PO Not Given BID NICKI Sodium Chloride 2 ml 12/18/17 09:00 12/22/17 20:54 Ns Flush IV.FLUSH Not Given BID NICKI Objective Remarks: GENERAL: Well-nourished, well-developed patient. Obese SKIN: Warm and dry. HEAD: Normocephalic. No bleeding noted at surgical site. EYES: No scleral icterus. No injection or drainage. NECK: Supple, trachea midline. No JVD or lymphadenopathy. LYMPHATIC: No adenopathy. CARDIOVASCULAR: Regular rate and rhythm without murmurs. RESPIRATORY: Breath sounds equal bilaterally. No accessory muscle use. GASTROINTESTINAL: Abdomen soft, non-tender, nondistended. EXTREMITIES: No cyanosis, or edema. MUSCULOSKELETAL: Adequate muscle tone. NEUROLOGICAL: More alert but not oriented. Assessment/Plan (1) Hydrocephalus Code(s): G91.9 - Hydrocephalus, unspecified Status: Acute (2) Altered mental status Code(s): R41.82 - Altered mental status, unspecified Status: Acute - Plan 62-year-old female transferred from [facility] for evaluation of malfunctioning PROTECTION ENGINEER shunt. She reportedly has history of brain tumor resection 2 at the [facility]. This hospitalization she was noted to have a mass on MRI measuring 2.5 cm x 2.6 cm arising from the dura involving the right cavernous sinus and displacing the brainstem involving the basilar artery. Neurosurgery is following. Oncology consulted to give recommendations for new brain tumor. 1. Patient is status post shunt revision on December 18. In regards to mass, neurosurgery recommends re-imaging in 3 months. 2. Called and spoke with pt's daughter; she does not remember what type of tumor was previously resected, only that it was 'benign.' She appeared to have meningioma. Further management will depend on neurosurgery. I have no further recommendation for medical oncology standpoint. Patient can be discharged when cleared by neurosurgery.
[2017-12-23] MEDS ORDERED: Warfarin Consult Pharmacy OTHER PRN (08:14)
[2017-12-23] MEDS: levETIRAcetam 250 MG Tablet PO SCH ×2 (09:58→22:27)
[2017-12-23] MEDS: Lisinopril 5 MG Tablet PO SCH (09:59)
[2017-12-23] MEDS: Senna/Docusate Sodium 8.6/50 MG Tablet PO SCH ×2 (09:59→22:27)
[2017-12-23] MEDS: Escitalopram 10 MG Tablet PO SCH (09:59)
[2017-12-23 12:52] LABS: Prothrombin Time 10.6 sec (9.8-11.6)
--- NOTE | 2017-12-23 15:39 | US ---
EXAM DATE: 12/23/2017 3:34 PM EDT AGE/SEX: 62 years / Female INDICATIONS: Bilateral arm swelling. CLINICAL DATA: This is the patient's initial encounter. Patient reports that signs and symptoms have been present for 1 day and indicates a pain score of 0/10. MEDICAL/SURGICAL HISTORY: Diabetes. Hypothyroidism. Deep venous thrombosis. CVA with left-si ded hemiparesis. Seizure disorder. Obstructed ACADEMIC SUPPORT DIRECTOR shunt. Hysterectomy. 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 S/P ACADEMIC SUPPORT DIRECTOR shunt . Brain surgery. COMPARISON: No prior exams available for comparison. FINDINGS: Right Upper Extremity: The vessels are compressible and augmentation response is documented. No fill ing defects are seen. The flow is phasic with respiration. Left Upper Extremity: The cephalic and basilic veins are noncompressible throughout the forearm. The deep venous structures are patent without evidence of thrombus or occlusion. Other: None. CONCLUSION: 1. Superficial venous thrombosis involving the cephalic and basilic veins of the left upper extremit y. 2. No evidence of DVT in either upper extremity. Electronically signed by: Desmond Tabor MD 12/23/2017 3:37 PM EDT
--- NOTE | 2017-12-23 16:30 | P.DS ---
Date of admission: 12/17/17 17:51 Primary care physician: UNKNOWN Attending physician on discharge: Keisha Bacon Brief History from admission: 62-year-old -Macedonian female with history of brain tumor status post resection x 2 and shunt placement x 2 for hydrocephalus, prior CVA with left- sided hemiparesis, prior DVT/PE anticoagulated on Coumadin, seizure disorder, and hypothyroidism transferred from [facility] for evaluation of possible shunt malfunction. The patient is a poor historian and the history is primarily obtained by the ED physicians evaluation as well as the patient's daughter who was contacted via phone. Reportedly the patient has had worsening altered mental status for the past several days and decreased appetite. Her daughter states that although she is not completely oriented at baseline she is able to hold a conversation. She states she knows her name, birthday, social security number, etc. but is typically not oriented to time. Today it got to the point where the patient was not even able to communicate with her daughter so she brought her into the ED at [place] since they live in [place]. A CT scan of the brain showed dilated ventricles concerning for possible shunt malfunction. After acceptance by neurosurgery, the patient was transferred to [place]. The patient denies headaches, nausea, vomiting, or new neuro deficits. The daughter states she hasn't had a fever or signs of infection. She hasn't been seen by a neurologist in approximately one year as her daughter has had difficulty finding one that will accept her. The patient's daugther states her PCP has taken her off multiple medications and now she is only taking Lisinopril, Keppra, and Coumadin. She states she had diabetes when she was chronically on steroids for the tumor but since being off she has been off of diabetic medications. Patient update on day of discharge: Follow-up of patient with altered mental status. Patient status post VPS tap at the bedside performed by neurosurgery. Patient status post shunt revision 12/18/17. Patient seen and examined. Patient more alert this morning. She denies any complaints of pain. She denies any fever or chills. She denies any chest pain or shortness of breath. She denies any nausea, vomiting or abdominal pain. She reports good appetite. DS: Diagnosis - Discharge Diagnosis (1) Altered mental status Status: Acute (2) Hydrocephalus Status: Acute (3) Acute kidney injury Status: Acute DS: Summary Hospital Course: Patient admitted with encephalopathy/altered mental status. Neurosurgery was consulted. Patient underwent a VPS tap at the bedside and CSF fluid was sent for evaluation and did not appear to be infected. Patient underwent shunt revision 12/18/2017. MRI of the brain revealed tumor in the resection cavity felt likely to be due to meningioma. EEG was obtained which showed diffuse slowing but no focal abnormality. Neurosurgery recommended reimaging in 3 months. Neurosurgery cleared patient for discharge. Patient was seen by Oncology who did not have any further recommendations and cleared patient for discharge. Patient participated with speech, physical and occupational therapy. Case management assisted with discharge plan. - Time Spent with Patient Total time spent providing and/or coordinating discharge services: Greater than 30 minutes Exam Vital signs: Vital Signs 12/22/17 20:00 12/22/17 20:40 12/23/17 00:00 Temperature 98.3 F 97.0 F L Pulse Rate 59 L 58 L Respiratory Rate 16 18 Blood Pressure 118/56 L 175/63 H Pulse Oximetry 100 100 98 12/23/17 04:00 12/23/17 04:09 12/23/17 08:00 Temperature 98.2 F 97.3 F L Pulse Rate 51 L 46 L Respiratory Rate 20 18 10 L Blood Pressure 134/72 135/85 Pulse Oximetry 98 99 12/23/17 09:50 12/23/17 10:35 12/23/17 12:00 Temperature 97.9 F Pulse Rate 55 L Respiratory Rate 12 16 Blood Pressure 161/72 H Pulse Oximetry 93 L 100 Intake & Output 12/22/17 12/23/17 12/23/17 18:59 06:59 18:59 Intake Total 720 / 720 0 / 0 Output Total 400 / 400 300 / 300 Balance 720 / 720 -400 / -400 -300 / -300 Intake: IV 0 / 0 Oral 720 / 720 Output: Urine 400 / 400 300 / 300 Other: # Voids 1 # Incontinent Voids 3 Date of Last Bowel Movement 12/21/17 12/22/17 # Bowel Movements 0 1 Narrative: GENERAL: WDWN obese -Macedonian female patient, in no acute distress. Awake and alert. Afebrile. VSS. SKIN: Warm and dry. HEAD: Normocephalic. s/p shunt revision, sydnie intact, appears to be healing well. EYES: Patient is blind. No scleral icterus. No injection or drainage. ENT: No nasal bleeding or discharge. Mucous membranes pink and moist. NECK: Trachea midline. CARDIOVASCULAR: Regular rate and rhythm. No M/R/G. RESPIRATORY: No accessory muscle use. Poor effort. Clear to auscultation anteriorly. Breath sounds equal bilaterally. GASTROINTESTINAL: Abdomen soft, non-tender, nondistended. MUSCULOSKELETAL: Extremities without clubbing, cyanosis, or edema. No obvious deformities. NEUROLOGICAL: Awake and alert. Able to follow simple commands. 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 Unable to geothermal powerplant mechanic with left hand and no spontaneous movement noted of LLE. Results Procedures completed during hospitalization: - Preoperative Diagnosis (1) Hydrocephalus - Postoperative Diagnosis (1) Hydrocephalus Date of procedure: 12/18/17 Procedure: Right ventriculoperitoneal shunt revision Implants: Codman Hakim programmable valve (Set to 80) [facility] Surgeon: Beto Burk MD Operation and Findings: Indication for procedure: 62 yo F s/p craniectomy for tumor resection and VPS many years prior who presented to [facility] with confusion. CT head demonstrated hydrocephalus in comparison to previous imaging. The valve was tapped and CSF aspirated in order to temporize the patient till her INR was successfully reversed with FFP. The risks, indications, and alternatives were discussed with the patients POA, and the family elected to undergo shunt revision. Details of the procedure: The patient was taken to the [facility] OR and was induced with general anesthesia. A preoperative timeout was performed verifying the correct patient and surgical procedure. Preoperative antibiotics were administered. She was positioned with a bump under the shoulder. All sites were appropriately padded. Hair on the head was shaved. She was sterilely prepped and draped. A pre-incisional timeout was again performed confirming the patient, the operative site, and that preoperative antibiotics were given. A hockey stick incision was created around the previous shunt site. Bovie cautery was used for soft tissue dissection. The distal catheter was removed from the shunt valve and connected to the manometer. The distal catheter was noted to be functioning appropriately. The manometer was then connected to the distal portion of the original Strata NSC Valve (previously known to be set to 1.5 or 80 mmH20). The pressure on the manometer was noted to be roughly 13-14 mmH20. The valve was then removed from the proximal catheter and there was noted to be spontaneous CSF flow under significant pressure from the proximal catheter. The elevated manometer pressure in comparison to the valve setting and significantly elevated pressure noted from the proximal catheter without the valve connected, it was assumed that there was a defective shunt valve in a patient with increased ventricular compliance. A Codman Hakim Valve set to 80 was then attached to both the proximal and distal catheters and affixed with silk ties. A 25g butterly needle was then introduced into the valve reservoir and there was spontaneous flow of CSF. Copious irrigation was performed and hemostasis achieved in the scalp incision. We closed the cranial incision with inverted interrupted 2-0 Vicryl sutures and with skin sydnie. We placed bacitracin and sterile dressings on the incisions. All counts were correct at the end of the procedure. A final debriefing was performed. The patient was extubated without complications. Documented By: Beto Burk MD 12/18/171957 Signed By: <Electronically signed by Beto Burk MD> 12/18/172013 Labs on day of discharge: Labs from last 24 hours 12/23/17 12/23/17 12/23/17 11:48 11:35 08:35 PT 10.6 INR 1.0 POC Glucose 166 H 87 12/22/17 12/22/17 20:03 17:54 PT INR POC Glucose 192 H 85 Preliminary micro results at discharge 12/19/17 18:00 Aerobic Blood Culture - Preliminary Blood - Peripheral No growth in 4 days Anaerobic Blood Culture - Preliminary No growth in 4 days 12/19/17 17:51 Aerobic Blood Culture - Preliminary Blood - Peripheral No growth in 4 days Anaerobic Blood Culture - Preliminary No growth in 4 days - Impressions ITS Impressions Shunt Study 12/17/17 17:45 CONCLUSION: The shunt catheter tubing appears intact. Head CT 12/18/17 18:21 CONCLUSION: 1. Right-sided shunt catheter in place with the tip in the right lateral ventricle. The lateral and third ventricles are prominent. 2. Ill-defined masslike structure in the right suprasellar region. This area is not well-visualized due to streak and motion artifact. 3. The patient is status post right temporal craniotomy. 4. Edema is noted in the white matter of the right frontal and parietal lobes. There is no acute hemorrhage. . Head MRI 12/19/17 00:00 CONCLUSION: 1. Mass as described above arising probably from the dural involving the right cavernous sinus, and displacing brainstem with involvement of the basilar artery.. 2. Most likely diagnosis is meningioma probably angiofillic given the degree of enhancement. Lesion such as chordoma or chondrosarcoma are thought to be less likely Skull X-Ray 12/19/17 00:00 CONCLUSION: Ventriculoperitoneal shunt as above. Chest X-Ray 12/20/17 00:00 CONCLUSION: Within normal limits. Improved aeration in the interim. Venous Doppler Study 12/23/17 00:00 CONCLUSION: 1. Superficial venous thrombosis involving the cephalic and basilic veins of the left upper extremity. 2. No evidence of DVT in either upper extremity. Discharge Plan - Discharge Disposition Patient Disposition: 03 Discharge to SNF - Discharge Condition Condition: Stable - Discharge Order Discharge Orders: Discharge Order (Routine); Ordered 12/23/17 Ordered By: Jeana Santiago - Discharge Details Discharge Comment: Discharge pending SNF/inpatient rehab placement - Physicians Team Primary Care Provider: UNKNOWN, Attending Provider: Keisha Bacon Other Providers: Beto Burk MD ; Stone Santamaria MD
[2017-12-23 16:46] VITALS: RESP 18
[2017-12-23] MEDS: amLODIPine 5 MG Tablet PO SCH (18:36)
[2017-12-24 05:48] VITALS: O2SAT 100
[2017-12-24] MEDS: Levothyroxine 50 MCG Tablet PO SCH (07:03)
[2017-12-24 07:24] LABS: Prothrombin Time 10.6 sec (9.8-11.6)
[2017-12-24 08:47] VITALS: BP 106/55; PULSE 59; TEMP 98.4
[2017-12-24] MEDS: amLODIPine 5 MG Tablet PO SCH (09:14)
[2017-12-24] MEDS: Senna/Docusate Sodium 8.6/50 MG Tablet PO SCH (09:20)
[2017-12-24] MEDS: Lisinopril 5 MG Tablet PO SCH (09:20)
[2017-12-24] MEDS: Escitalopram 10 MG Tablet PO SCH (09:21)
[2017-12-24] MEDS: levETIRAcetam 250 MG Tablet PO SCH (09:22)
--- NOTE | 2017-12-24 09:26 | P.PN ---
Subjective Interval history: Follow-up of patient with altered mental status. Patient status post VPS tap at the bedside performed by neurosurgery. Patient status post shunt revision 12/18/17. Patient seen and examined. Patient shakes her head no in response today. Does not open her eyes. Does not speak. Appears comfortable. Shakes her head no that she is in any pain. No fever or chills. Discussed with nursing staff, no acute issues noted overnight. Physical Exam Vital signs: Vital Signs 12/23/17 09:50 12/23/17 10:35 12/23/17 12:00 Temperature 97.9 F Pulse Rate 55 L Respiratory Rate 12 16 Blood Pressure 161/72 H Pulse Oximetry 93 L 100 12/23/17 16:00 12/23/17 20:00 12/24/17 00:00 Temperature 97.5 F L 98.2 F 98.5 F Pulse Rate 47 L 60 60 Respiratory Rate 18 18 18 Blood Pressure 166/72 H 140/63 173/77 H Pulse Oximetry 100 100 99 12/24/17 04:00 12/24/17 08:00 Temperature 98.5 F 98.4 F Pulse Rate 60 59 L Respiratory Rate 18 18 Blood Pressure 115/66 106/55 L Pulse Oximetry 100 100 Intake & Output 12/23/17 12/24/17 12/24/17 18:59 06:59 18:59 Intake Total 442 / 442 Output Total 300 / 300 1800 / 1800 Balance -300 / -300 -1800 / -1800 442 / 442 Weight 107.7 kg Intake: Oral 442 / 442 Output: Urine 300 / 300 1800 / 1800 Other: # Voids 1 # Incontinent Voids 2 Date of Last Bowel Movement 12/22/17 12/23/17 # Bowel Movements 1 1 Narrative: GENERAL: WDWN obese -Faroese female patient, in no acute distress. Awake. Shakes head no in response to questions. Does not speak. Does not open her eyes. SKIN: Warm and dry. HEAD: Normocephalic. s/p shunt revision, sydnie intact, appears to be healing well. EYES: Patient is blind. No scleral icterus. No injection or drainage. ENT: No nasal bleeding or discharge. Mucous membranes pink and moist. NECK: Trachea midline. CARDIOVASCULAR: Regular rate and rhythm. No M/R/G. RESPIRATORY: No accessory muscle use. Poor effort. Clear to auscultation anteriorly. Breath sounds equal bilaterally. GASTROINTESTINAL: Abdomen soft, non-tender, nondistended. MUSCULOSKELETAL: Extremities without clubbing, cyanosis, or edema. No obvious deformities. NEUROLOGICAL: Lethargic. Able to follow simple commands. Able to photo stylist with the right hand and spontaneously wiggle toes on right foot. Unable to photo stylist with left hand and no spontaneous movement noted of LLE. - Urinary Catheter Management Indwelling Urethral Catheter Cath placed during this visit: yes, but has since been removed by the nurse Reason for continuing: Hourly intake/output Insertion date: 12/18/17 Insertion time: 16:55 Removal time: 18:34 Results - Labs CBC & Chem 7: 12/20/17 13:20 12/21/17 06:43 Laboratory Results - last 24 hr 12/23/17 12/23/17 12/23/17 11:35 11:48 16:42 PT 10.6 INR 1.0 POC Glucose 166 H 107 12/24/17 12/24/17 07:06 07:40 PT 10.6 INR 1.0 POC Glucose 87 Microbiology 12/19/17 18:00 Blood - Peripheral Aerobic Blood Culture - Preliminary No growth in 4 days 12/19/17 18:00 Blood - Peripheral Anaerobic Blood Culture - Preliminary No growth in 4 days 12/19/17 17:51 Blood - Peripheral Aerobic Blood Culture - Preliminary No growth in 4 days 12/19/17 17:51 Blood - Peripheral Anaerobic Blood Culture - Preliminary No growth in 4 days - Imaging Impressions Venous Doppler Study 12/23/17 00:00 CONCLUSION: 1. Superficial venous thrombosis involving the cephalic and basilic veins of the left upper extremity. 2. No evidence of DVT in either upper extremity. - Procedures - Preoperative Diagnosis (1) Hydrocephalus - Postoperative Diagnosis (1) Hydrocephalus Date of procedure: 12/18/17 Procedure: Right ventriculoperitoneal shunt revision Implants: Codman Hakim programmable valve (Set to 80) Anesthesia: GETA Surgeon: Beto Burk MD Operation and Findings: Indication for procedure: 62 yo F s/p craniectomy for tumor resection and VPS many years prior who presented to OSH with confusion. CT head demonstrated hydrocephalus in comparison to previous imaging. The valve was tapped and CSF aspirated in order to temporize the patient till her INR was successfully reversed with FFP. The risks, indications, and alternatives were discussed with the patients POA, and the family elected to undergo shunt revision. Details of the procedure: The patient was taken to the [facility] OR and was induced with general anesthesia. A preoperative timeout was performed verifying the correct patient and surgical procedure. Preoperative antibiotics were administered. She was positioned with a bump under the shoulder. All sites were appropriately padded. Hair on the head was shaved. She was sterilely prepped and draped. A pre-incisional timeout was again performed confirming the patient, the operative site, and that preoperative antibiotics were given. A hockey stick incision was created around the previous shunt site. Bovie cautery was used for soft tissue dissection. The distal catheter was removed from the shunt valve and connected to the manometer. The distal catheter was noted to be functioning appropriately. The manometer was then connected to the distal portion of the original Strata NSC Valve (previously known to be set to 1.5 or 80 mmH20). The pressure on the manometer was noted to be roughly 13-14 mmH20. The valve was then removed from the proximal catheter and there was noted to be spontaneous CSF flow under significant pressure from the proximal catheter. The elevated manometer pressure in comparison to the valve setting and significantly elevated pressure noted from the proximal catheter without the valve connected, it was assumed that there was a defective shunt valve in a patient with increased ventricular compliance. A [employer] Valve set to 80 was then attached to both the proximal and distal catheters and affixed with silk ties. A 25g butterly needle was then introduced into the valve reservoir and there was spontaneous flow of CSF. Copious irrigation was performed and hemostasis achieved in the scalp incision. We closed the cranial incision with inverted interrupted 2-0 Vicryl sutures and with skin sydnie. We placed bacitracin and sterile dressings on the incisions. All counts were correct at the end of the procedure. A final debriefing was performed. The patient was extubated without complications. Documented By: Beto Burk MD 12/18/171957 Signed By: <Electronically signed by Beto Burk MD> 12/18/172013 Assessment and Plan - Assessment (1) Altered mental status Code(s): R41.82 - Altered mental status, unspecified Status: Acute (2) Hydrocephalus Code(s): G91.9 - Hydrocephalus, unspecified Status: Acute (3) Acute kidney injury Code(s): N17.9 - Acute kidney failure, unspecified Status: Acute - Plan 62-year-old -Faroese female with history of brain tumor status post resection and INTERNAL MEDICINE DOCTOR shunt placement, prior CVA, prior DVT/PE anticoagulated on Coumadin, and seizure disorder transferred from [facility] for evaluation of shunt malfunction after the patient presented with AMS. Labs from the outlying facility revealed white count of 9.0, hemoglobin 12.5, hematocrit 38.9, platelet count 329, PT 27.6, INR 2.5, APTT 40.8, Sodium 145, potassium 5.2 , chloride 106, CO2 23, anion gap 21, BUN 24, creatinine 1.16, glucose 102, calcium 9.2, total bili 0.2, AST 20, ALT 15, alkaline phosphatase 98, total protein 8.1, and albumin 4.4. CT of the brain revealed a shunt tube entering the right lateral ventricle with development of hydrocephalus and transependymal flow of CSF since the prior study suggesting shunt failure. 12/24 Patient discharged yesterday. Discharge held pending placement. Patient has been accepted to [facility] for comprehensive rehabilitation. Patient is stable. No change. No events noted overnight. Altered mental status Hx of hydrocephalus s/p INTERNAL MEDICINE DOCTOR shunt - Neurosurgery consulted s/p VPS tap at the bedside with CSF fluid sent for evaluation (cytology and culture). CSF fluid does not appear infected. - s/p shunt revision 12/18/17, [place] x 2 weeks. - MRI brain shows tumor in resection cavity. Per NS, patient will need to have re-imaging in 3 mos. - Oncology following, appreciate assistance. - EEG shows diffuse slowing, no focal abnormality - ST following, on pureed nectar thickened diet Hypertension, now hypotensive - Hold Lisinopril and Norvasc - give small IVF bolus - monitor BP and adjust treatment accordingly Hypoglycemia BS 59 - Started on D5, blood sugars better. Blood sugars adequate off of D5. - continue accucheks - hypoglycemic protocol Diabetes A1c 6.1 - will continue to hold long acting insulin - continue accucheks as above RAQUEL on suspected CKD, suspect secondary to poor oral intake - Cr trending down - avoid nephrotoxic agents - Continue to monitor kidney function as indicated. Hypothyroidism - TSH WNL - Continue on Synthroid Bradycardia, asymptomatic - EKG shows sinus tracee - HR better today - possible med SE, patient on Clonidine prn H/o recurrent DVT/PE - Anticoagulated on Coumadin with INR 2.5 - Doppler U/S negative for DVT - Cleared by NS to resume Coumadin. Pharmacy to dose. Seizures - Continue Keppra DVT prophylaxis - patient is on Coumadin Code Status: FULL Discussed Condition With: patient, nursing staff, Dr. Bacon
[2017-12-24] MEDS ORDERED: Sodium Chlor 0.9% Inj 250 ML IV.SIG SCH (10:00)
--- NOTE | 2017-12-24 22:14 | ECG ---
Date Performed: 12/23/2017 Time Performed: 17:05:10 PTAGE: 62 years EKG: SINUS BRADYCARDIA BORDERLINE ECG PREVIOUS TRACING : 12/18/2017 16.24 DOCTOR: Ina Barrios Interpretating Date/Time 12/24/2017 22:10:40
== END 2017-12-24 09:54 ==
LOC: NEPE 17:01 → NEDA 17:51 → N05 19:59
PROVIDERS: ADMIT Family Medicine; ATTEND Family Medicine